=== PATIENT | female | born 1950 | race Caucasian/White ===

== ENCOUNTER 2017-06-04 20:00 | Inpatient (IN) | payer MEDICARE ==
[~2017-06-04] VITALS: Ht 162.6 cm; Wt 78.2 kg
[~2017-06-04 20:00] MED LIST: AMBIEN10 MG PO; CHANTIX1 MG PO; CIPRO500 MG PO; GABAPENTIN100 MG PO; LYRICA50 MG PO; MORPHINE SULFAT30 M2 PO; NORCO 10MG-325MG1 EA PO; PROMETHAZINE HC25 M1 PO; PROZAC20 MG PO; XANAX2 MG PO
[2017-06-04] MEDS ORDERED: ONDANSETRON HCL INJ 2 MG/ML VIAL IV STA (20:25)
[2017-06-04] MEDS ORDERED: PANTOPRAZOLE 40 MG 10ML VIAL IV STA (20:25)
[2017-06-04] MEDS ORDERED: SODIUM CHLORIDE 0.9% 1000ML 1,000 ML IV ONE (20:30)
[2017-06-04 21:06] LABS: BASOPHILS % 0.3 % (0.0-1.0); EOSINOPHILS % 0.3 % (0.0-6.0); HEMATOCRIT 41.5 % (34.2-44.1); HEMOGLOBIN 14.2 g/dL (12.0-16.0); LYMPHOCYTES # (AUTO) 1.8 (1.0-3.2); LYMPHOCYTES % 16.2 % (18.0-39.1); MEAN CORPUSCULAR HEMOGLOBIN 31.1 pg (28-32); MEAN CORPUSCULAR HGB CONC 34.2 g/dL (31-35); MONOCYTES % 8.5 % (4.4-11.3); NEUTROPHILS # (AUTO) 8.4 (2.1-6.9); NEUTROPHILS % 74.4 % (38.7-80.0); PLATELET COUNT 222 x10e3/uL (140-360); RED BLOOD COUNT 4.56 x10e6/uL (3.6-5.1); RED CELL DISTRIBUTION WIDTH 13.6 % (11.7-14.4)
[2017-06-04 21:18] LABS: ALANINE AMINOTRANSFERASE 109 IU/L (0-55); ALBUMIN 3.8 g/dL (3.5-5.0); ALBUMIN/GLOBULIN RATIO 1.1 (0.8-2.0); ALKALINE PHOSPHATASE 143 IU/L (40-150); AMYLASE 75 U/L (25-125); ANION GAP 15.6 mmol/L (8-16); BLOOD UREA NITROGEN 11 mg/dL (7-26); BUN/CREATININE RATIO 13 (6-25); CALCIUM 9.3 mg/dL (8.4-10.2); CARBON DIOXIDE 25 mmol/L (22-29); CHLORIDE 105 mmol/L (98-107); CREATINE KINASE 24 IU/L (29-168); CREATININE, SERUM 0.87 mg/dL (0.57-1.11); EST GLOMERULAR FILTRATION RATE > 60 ML/MIN (60-); GLUCOSE 108 mg/dL (74-118); LIPASE 25 U/L (8-78); POTASSIUM 3.6 mmol/L (3.5-5.1); SODIUM 142 mmol/L (136-145)
[2017-06-04 21:24] LABS: TROPONIN I 0.005 ng/mL (0-0.300)
[2017-06-04] MEDS ORDERED: DIATRIZOATE MEGL/DIATRIZOA SOD 30 ML BTL PO ONE (22:52)
[2017-06-04 23:35] LABS: BILIRUBIN,URINE NEGATIVE (NEGATIVE); CLARITY,URINE HAZY (CLEAR); COLOR,URINE YELLOW (YELLOW); KETONES,URINE NEGATIVE (NEGATIVE); LEUKOCYTE ESTERASE ,URINE TRACE (NEGATIVE); NITRITE,URINE NEGATIVE (NEGATIVE); PROTEIN,URINE DIPSTICK NEGATIVE (NEGATIVE); URINE UROBILINOGEN 0.2 mg/dL (0.2 - 1)
[2017-06-04 23:53] LABS: BACTERIA,URINE MANY /HPF; EPITHELIAL CELLS,URINE FEW /LPF; RBC,URINE 0-5 /HPF (0-5); TRANSITIONAL EPI CELLS,URINE FEW; WBC,URINE (MAN) 21-50 /HPF (0-5)
--- NOTE | 2017-06-05 00:05 | Diagnostic Imaging Report ---
EXAM: CT ABDOMEN AND PELVIS with IV CONTRAST DATE: 06/04/2017 8:25 PM Time stamp on Exam: 2326 hours INDICATION: Upper abdominal pain, radiates to left side COMPARISON: None TECHNIQUE: The abdomen and pelvis were scanned using a multidetector helical scanner. Coronal and sagittal reformations were obtained. Routine protocol performed. IV Contrast: 100 cc Isovue-370 Oral Contrast: Gastrografin CTDIvol has been reviewed. It is below the limits set by the Radiation Protocol Committee (RPC). FINDINGS: LOWER THORAX: No consolidations LIVER: Simple cysts in the liver. BILIARY: Diffuse gallbladder wall thickening and pericholecystic inflammation. SPLEEN: No masses PANCREAS: No masses ADRENALS: No nodules KIDNEYS: Symmetric perfusion. No enhancing masses. No hydronephrosis. GI TRACT: No distention, wall thickening or evidence of obstruction. VESSELS: Mild atherosclerotic changes without aneurysm. PERITONEUM/RETROPERITONEUM: No free air or fluid LYMPH NODES: No lymphadenopathy REPRODUCTIVE ORGANS: Unremarkable BLADDER: Unremarkable SOFT TISSUES: Unremarkable BONES: No suspicious bone lesions. IMPRESSION: Nonspecific gallbladder wall thickening and mild surrounding inflammation. Consider acute cholecystitis. Signed by: Dr. Deysi Wise M.D. on 06/05/2017 12:02 AM
[2017-06-05] MEDS ORDERED: ONDANSETRON HCL INJ 2 MG/ML VIAL IV STA (00:16)
[2017-06-05] MEDS ORDERED: MORPHINE SULFATE 2 MG/ML SYR IV STA (00:16)
[2017-06-05] MEDS: HYDRALAZINE HCL 20 MG/ML VIAL IV PRN (00:30)
[2017-06-05] MEDS ORDERED: CEFOXITIN 1GM/ DEXTROSE 50ML ML IV SCH (00:30)
[2017-06-05] MEDS: METRONIDAZOLE 500MG/NS 100ML IV SCH ×5 (00:43→23:42)
[2017-06-05] MEDS: SODIUM CHLORIDE 0.9% 1000ML 1,000 ML IV SCH ×2 (00:43→11:52)
[2017-06-05] MEDS: ALPRAZOLAM 1 MG TAB PO SCH ×3 (02:33→20:14)
[2017-06-05] MEDS: ONDANSETRON HCL INJ 2 MG/ML VIAL IV PRN (04:31)
[2017-06-05] MEDS: MORPHINE SULFATE 2 MG/ML SYR IV PRN ×4 (04:31→21:02)
[2017-06-05] MEDS: CEFOXITIN 1GM/ DEXTROSE 50ML ML IV SCH ×3 (05:35→22:48)
[2017-06-05] MEDS ORDERED: IOPAMIDOL 370 MG/ML 200 ML INFUS..BTL INJ ONE (06:55)
[2017-06-05] MEDS: PROMETHAZINE HCL 25 MG TAB PO SCH ×3 (09:00→20:14)
[2017-06-05] MEDS ORDERED: PREGABALIN 50 MG CAP PO SCH (09:00)
[2017-06-05] MEDS ORDERED: NON-FORMULARY MEDICATION (Alprazolam (Xanax) 2 MG) PO SCH (09:00)
[2017-06-05] MEDS: FLUOXETINE HCL 20 MG CAP PO SCH (09:00)
[2017-06-05 09:59] LABS: BASOPHILS % 0.3 % (0.0-1.0); EOSINOPHILS % 0.8 % (0.0-6.0); HEMATOCRIT 32.3 % (34.2-44.1); HEMOGLOBIN 10.3 g/dL (12.0-16.0); LYMPHOCYTES # (AUTO) 1.5 (1.0-3.2); LYMPHOCYTES % 39.8 % (18.0-39.1); MEAN CORPUSCULAR HEMOGLOBIN 30.5 pg (28-32); MEAN CORPUSCULAR HGB CONC 31.9 g/dL (31-35); MEAN CORPUSCULAR VOLUME 95.6 fL (81-99); MONOCYTES # (AUTO) 0.5 (0.2-0.8); MONOCYTES % 11.9 % (4.4-11.3); NEUTROPHILS # (AUTO) 1.8 (2.1-6.9); NEUTROPHILS % 46.9 % (38.7-80.0); PLATELET COUNT 177 x10e3/uL (140-360); RED BLOOD COUNT 3.38 x10e6/uL (3.6-5.1)
[2017-06-05 10:26] LABS: ALANINE AMINOTRANSFERASE 403 IU/L (0-55); ALBUMIN 2.8 g/dL (3.5-5.0); ALBUMIN/GLOBULIN RATIO 1.2 (0.8-2.0); ALKALINE PHOSPHATASE 187 IU/L (40-150); ANION GAP 10.5 mmol/L (8-16); BLOOD UREA NITROGEN 7 mg/dL (7-26); BUN/CREATININE RATIO 10 (6-25); CALCIUM 7.7 mg/dL (8.4-10.2); CARBON DIOXIDE 20 mmol/L (22-29); CHLORIDE 114 mmol/L (98-107); CREATININE, SERUM 0.72 mg/dL (0.57-1.11); EST GLOMERULAR FILTRATION RATE > 60 ML/MIN (60-); GLUCOSE 85 mg/dL (74-118); POTASSIUM 3.5 mmol/L (3.5-5.1); SODIUM 141 mmol/L (136-145)
--- NOTE | 2017-06-05 11:24 | Diagnostic Imaging Report ---
EXAM: RUQ ULTRASOUND Date: 06/05/2017 7:56 AM Indication: Comparison: None Technique: Sonographic evaluation of the right upper quadrant. Color doppler was utilized to supplement evaluation. FINDINGS: LIVER: No focal lesion is identified. The liver measures 18.8 cm in the right midclavicular line. Echotexture is normal. 1 cm simple cyst incidentally noted left hepatic lobe. BILIARY: Multiple shadowing gallstones are present, largest measuring 0.8 cm. Gallbladder wall is thickened, possibly due to nondistention. The common bile duct measures 0.3 cm. No sonographic Fletcher sign reported. PANCREAS: The pancreas is incompletely visualized due to overlying bowel gas, but no abnormality identified involving the visualized portions of the pancreas. RIGHT KIDNEY: Measures 8.9 cm in length. No hydronephrosis or solid mass lesion identified. PERITONEUM: No free fluid. VASCULATURE: Aorta: Visualized portions appear unremarkable. Interior vena cava: Visualized portions appear unremarkable. Portal Vein: Nondilated with hepatopedal flow. IMPRESSION: Multiple shadowing gallstones with no thickening of the common duct and no sonographic Fletcher sign reported. Gallbladder wall thickening may be due to nondistention. Clinical and laboratory correlation for cholecystitis recommended, however. Signed by: Dr. Morales Hudson MD on 06/05/2017 11:21 AM
[2017-06-05 11:39] LABS: THYROID STIMULATING HORMONE 3.553 uIU/mL (0.350-4.940)
[2017-06-05] MEDS: PANTOPRAZOLE SOD 40 MG TABEC PO SCH ×2 (11:55→16:59)
--- NOTE | 2017-06-05 13:39 | History and Physical ---
PRIMARY CARE PROVIDER: Dr. Juanito Villeda. CHIEF COMPLAINT: Retrosternal chest pain. HISTORY OF PRESENT ILLNESS: Ms. Forrest is a 66-year-old lady who has history of lupus, fibromyalgia, hypertension and peptic ulcer disease. She comes in complaining of retrosternal and epigastric pain. She is also complaining of generalized abdominal pain worse in the epigastric area and left lower quadrant. This has been going on since yesterday. REVIEW OF SYSTEMS: She denies fever, chills or weight loss. She denies sinus congestion or sore throat. She has chest pain as noted. No diaphoresis or palpitations. She denies shortness of breath, wheezing or cough. She has abdominal pain as noted in the epigastric area. She has acid reflux. She denies nausea, vomiting or melena. She denies diarrhea. She denies dysuria or flank pain. She denies rash or pruritus. She denies joint pain or swelling. She has generalized myalgia. She denies bleeding or bruising. She denies headache, vertigo or loss of consciousness. She denies depression, agitation, homicidal or suicidal ideation. PAST MEDICAL HISTORY: Significant for longstanding hypertension, previous stroke, breast cancer that is in remission, lupus, fibromyalgia and chronic pain syndrome. She has a history of distant hysterectomy. She has had a left mastectomy with reconstruction. MEDICATIONS: Her regular home medications include: 1. Gabapentin 100 mg 3 times a day. 2. Xanax 2 mg 3 times a day. 3. Hydrocodone 10 mg q.4 h. as needed. 4. Prozac 40 mg daily. 5. Morphine sulfate extended release, MS Contin 30 mg twice daily. 6. Promethazine 50 mg 3 times a day. 7. Ambien 10 mg at bedtime. ALLERGIES: SHE HAS STATED ALLERGY TO NONSTEROIDAL ANTI-INFLAMMATORIES. FAMILY HISTORY: Significant for hypertension. SOCIAL HISTORY: The patient is . [place] is her primary language. She is a current daily smoker. She does not drink or use illegal drugs. She is generally independently functioning. PHYSICAL EXAMINATION PSYCHIATRIC: She is alert and oriented times 3 with normal mood and affect. CONSTITUTIONAL: She has a normal body habitus. She is in no acute distress. VITAL SIGNS: Blood pressure 147/72. It was 178/108 initially. Heart rate 78. Respiratory rate 18. O2 sat 97%. Temperature 98.4. HEENT: Head is atraumatic. Eyes are anicteric with clear conjunctivae. Ears and nares are without erythema or discharge. Oropharynx is clear. NECK: Supple. No mass or thyromegaly. LYMPHATIC SYSTEM: She has no palpable cervical, axillary or inguinal adenopathy. CARDIOVASCULAR: Her heart has a regular rate and rhythm without murmur or extra heart sound. She has no carotid bruit. She has no peripheral edema. She has palpable dorsal pedal pulses. RESPIRATORY: Lungs are clear to auscultation and percussion. Somewhat diminished breath sounds throughout with no wheezing and normal respiratory effort. GASTROINTESTINAL: Her abdomen is soft. She has some mild to moderate tenderness in the right upper quadrant, epigastric area and left lower quadrant without rebound or guarding. She has no hepatosplenomegaly or masses palpable, and normal bowel sounds are present. CUTANEOUS: Her skin is warm and dry to touch with no rash or skin breakdown. MUSCULOSKELETAL: Her joints are in normal alignment without erythema or swelling. She has generalized muscle tenderness. She has no calf tenderness. NEUROLOGIC: Exam is nonfocal with intact cranial nerves and no motor or sensory deficits. DIAGNOSTIC STUDIES: CT scan of the abdomen shows gallbladder wall thickening and pericolic inflammation. Ultrasound shows multiple gallstones. Her UA has 20 to 50 white cells. Troponin 0.005. Her EKG shows normal sinus rhythm with nonspecific ST changes. Her chemistry profile showed normal electrolytes. CO2 25. Creatinine 0.87 and BUN 11 for a normal GFR. Calcium 9.3. Glucose 105. Amylase 75. Lipase 25. Her transaminases are markedly elevated with an AST of 291 and ALT 109. Bilirubin is normal at 0.5. Alk phos is elevated at 143. Repeat LFTs this morning shows an AST of 553 and ALT of 403. T-bili 0.5 and alkaline phos 187, all more elevated. Her CBC shows a white count of 11.24 with 74% neutrophils and 16% lymphocytes. Hemoglobin 14.2, hematocrit 41.5 and platelet count 222,000. Repeat this morning: White count is 3.77 with a normal differential. Hemoglobin 10.3, hematocrit 32.3, platelet count 177,000 overnight. Her chemistry profile this morning: Sodium is 141. The rest of the electrolytes are normal. CO2 is 20. Glucose 85. Creatinine 0.72 and BUN 7 for a normal GFR. Calcium is 7.7. IMPRESSION AND PLAN 1. Gallstones and acute cholecystitis. The patient is started on IV cefoxitin and Flagyl, and surgery has been consulted. 2. Generalized abdominal pain. History of peptic ulcer disease and microcytic anemia. GI has been consulted. The patient might benefit from upper endoscopy. 3. Elevated liver enzymes, questionable fatty liver versus related to the acute cholecystitis. The patient was probably transiently obstructed but will check a hepatitis panel as well as smooth muscle and mitochondrial antibody titers in view of her history of lupus. 4. Chronic pain/lupus/fibromyalgia. Will continue her regular chronic pain medications. 5. Hypertension. Will monitor and use IV hydralazine as needed. 6. For prophylaxis, the patient will have SCDs placed for DVT prophylaxis and Protonix for GI prophylaxis. TORRI MCCARTHY MD Job#: [id number]
[2017-06-05] MEDS: PREGABALIN 50 MG CAP PO SCH ×2 (14:30→20:14)
[2017-06-05] MEDS ORDERED: PROMETHAZINE HCL 25 MG TAB ONE (14:43)
[2017-06-05 15:34] VITALS: BP 174/83
[2017-06-05 15:42] VITALS: BP 174/83
[2017-06-05 15:50] VITALS: BP 174/83
[2017-06-05 16:13] VITALS: BP 174/83
--- NOTE | 2017-06-05 16:16 | Discharge Summary ---
NO DICTATION, LENGTH 4 SECONDS. TORRI MCCARTHY MD Job#: [id number]
[2017-06-05] MEDS: MORPHINE SULFATE 30 MG TAB ER PO SCH (16:59)
[2017-06-05] MEDS ORDERED: LIDOCAINE HCL 2% LOCAL INJ 5 ML SDV VIAL INJ ONE (17:41)
[2017-06-05] MEDS ORDERED: ONDANSETRON HCL INJ 2 MG/ML VIAL ONE (17:41)
[2017-06-05] MEDS ORDERED: DEXAMETHASONE SOD PHOS INJ 4 MG/ML VIAL ONE (17:41)
[2017-06-05] MEDS ORDERED: PROPOFOL IV EMULSION 10 MG/ML 20 ML VIAL ONE (17:41)
[2017-06-05] MEDS ORDERED: ROCURONIUM BROMIDE 10 MG/ML 5ML VIAL ONE (17:41)
[2017-06-05] MEDS ORDERED: DESFLURANE 240 ML BTL INH ONE (17:41)
[2017-06-05 20:08] VITALS: BP 133/67
[2017-06-05] MEDS: ZOLPIDEM TARTRATE 10 MG TAB PO SCH (21:00)
[2017-06-06] VITALS: BP 126/71
[2017-06-06] MEDS: SODIUM CHLORIDE 0.9% 1000ML 1,000 ML IV SCH ×3 (02:24→21:20)
[2017-06-06 04:00] VITALS: BP 163/84
[2017-06-06] MEDS: MORPHINE SULFATE 2 MG/ML SYR IV PRN (04:46)
[2017-06-06] MEDS: ONDANSETRON HCL INJ 2 MG/ML VIAL IV PRN (04:46)
[2017-06-06] MEDS: METRONIDAZOLE 500MG/NS 100ML IV SCH ×3 (05:16→18:09)
[2017-06-06] MEDS: CEFOXITIN 1GM/ DEXTROSE 50ML ML IV SCH (06:28)
[2017-06-06 06:56] LABS: BASOPHILS % 0.1 % (0.0-1.0); EOSINOPHILS # (AUTO) 0.2 (0.0-0.4); EOSINOPHILS % 2.2 % (0.0-6.0); HEMATOCRIT 36.2 % (34.2-44.1); HEMOGLOBIN 11.4 g/dL (12.0-16.0); LYMPHOCYTES # (AUTO) 1.8 (1.0-3.2); LYMPHOCYTES % 22.5 % (18.0-39.1); MEAN CORPUSCULAR HEMOGLOBIN 30.4 pg (28-32); MEAN CORPUSCULAR HGB CONC 31.5 g/dL (31-35); MEAN CORPUSCULAR VOLUME 96.5 fL (81-99); MONOCYTES # (AUTO) 0.7 (0.2-0.8); MONOCYTES % 8.7 % (4.4-11.3); NEUTROPHILS # (AUTO) 5.2 (2.1-6.9); NEUTROPHILS % 66.2 % (38.7-80.0); PLATELET COUNT 198 x10e3/uL (140-360); RED BLOOD COUNT 3.75 x10e6/uL (3.6-5.1); RED CELL DISTRIBUTION WIDTH 14.3 % (11.7-14.4)
[2017-06-06 07:41] LABS: ALANINE AMINOTRANSFERASE 264 IU/L (0-55); ALBUMIN 2.9 g/dL (3.5-5.0); ALKALINE PHOSPHATASE 188 IU/L (40-150); AMYLASE 64 U/L (25-125); ANION GAP 10.7 mmol/L (8-16); BLOOD UREA NITROGEN 6 mg/dL (7-26); BUN/CREATININE RATIO 7 (6-25); CALCIUM 8.4 mg/dL (8.4-10.2); CARBON DIOXIDE 23 mmol/L (22-29); CHLORIDE 107 mmol/L (98-107); CREATININE, SERUM 0.84 mg/dL (0.57-1.11); EST GLOMERULAR FILTRATION RATE > 60 ML/MIN (60-); GLUCOSE 88 mg/dL (74-118); LIPASE 13 U/L (8-78); POTASSIUM 3.7 mmol/L (3.5-5.1); SODIUM 137 mmol/L (136-145)
[2017-06-06 07:55] LABS: THYROID STIMULATING HORMONE 2.227 uIU/mL (0.350-4.940)
[2017-06-06 08:00] VITALS: BP 142/74
[2017-06-06] MEDS: PREGABALIN 50 MG CAP PO SCH ×3 (09:30→21:20)
[2017-06-06] MEDS: PANTOPRAZOLE SOD 40 MG TABEC PO SCH ×2 (09:30→16:56)
[2017-06-06] MEDS: MORPHINE SULFATE 30 MG TAB ER PO SCH ×2 (09:30→16:56)
[2017-06-06] MEDS: FLUOXETINE HCL 20 MG CAP PO SCH (09:30)
[2017-06-06] MEDS: ALPRAZOLAM 1 MG TAB PO SCH ×3 (09:30→21:20)
[2017-06-06] MEDS: PROMETHAZINE HCL 25 MG TAB PO SCH ×3 (09:30→21:20)
[2017-06-06 11:40] VITALS: BP 157/74
[2017-06-06] MEDS: HYDROCODONE/APAP 10MG-325MG TAB PO PRN (12:45)
[2017-06-06] MEDS ORDERED: MEROPENEM 1 GM VIAL ONE ×3 (14:47→21:26)
--- NOTE | 2017-06-06 15:13 | Diagnostic Imaging Report ---
EXAM: MRI MRCP WO DATE: 06/06/2017 9:50 PM INDICATION: Concern for common bile duct stone. COMPARISON: Ultrasound dated 06/05/2017, CT dated 06/04/2017 TECHNIQUE: MRCP protocol performed using1.5 Magalie. Sequences obtained include axial T2 FRFSE FS, coronal and axial T2 SSFSE, SSFSE coronal spins. FINDINGS: Multiple hepatic T2 hyperintense lesions are probably cysts. The largest in left hepatic lobe measures 1.4 cm and in right hepatic lobe measuring 1.9 cm (series 4, image 8). The gallbladder is normal in appearance without wall thickening or pericholecystic fluid. Small dependent gallstones are visualized. The common bile duct is dilated up to 12mm. There are no filling defects or strictures. No intrahepatic biliary dilation. Within the limitations of the exam, the spleen, pancreas and adrenal glands are unremarkable. Visualized bowel loops are unremarkable. No evidence of bowel obstruction. No upper abdominal free fluid or lymphadenopathy. The soft tissues and bones are unremarkable. IMPRESSION: Mild to moderately distended common bile duct without evidence of choledocholithiasis. Cholelithiasis without evidence of cholecystitis. Signed by: Dr. Raj De La Cruz MD on 06/06/2017 3:10 PM
[2017-06-06] MEDS: MEROPENEM 1GRAM 1 GM in WATER STERILE 10ML VIAL 20 ML IV SCH ×2 (15:15→21:20)
--- NOTE | 2017-06-06 15:33 | Consultation ---
DATE OF CONSULTATION: June 05, 2017 GI CONSULT NOTE REFERRING PHYSICIAN: Dr. Hernán Piña. REASON FOR CONSULT: Acute cholecystitis with the possibility of choledocholithiasis. HISTORY OF PRESENTING ILLNESS: A 66-year-old white female who got admitted with acute onset of midepigastric pain. Found to have abnormal liver tests. Ultrasound showed gallstones with some gallbladder wall thickening suggestive of acute cholecystitis. Liver tests were noted abnormal. GI is being consulted for evaluation of acute cholecystitis with possibility of acute choledocholithiasis. Surgery has also been consulted. REVIEW OF SYSTEMS: A 12-point system reviewed, symptomatologies limited to GI system. PAST MEDICAL HISTORY: Hypertension; CVA; lupus; fibromyalgia; chronic pain syndrome; history of breast cancer, currently in remission. PAST SURGICAL HISTORY: Hysterectomy, lumpectomy, mastectomy with reconstruction. FAMILY HISTORY: Noncontributory. SOCIAL HISTORY: Daily smoker. Seldom drinks alcohol. Never used any illicit drugs. HOME MEDICATIONS: Gabapentin, Xanax, hydrocodone, Prozac, promethazine, and Ambien. ALLERGIES DOCUMENTED TO NONSTEROIDAL ANTI-INFLAMMATORY MEDICATIONS. PHYSICAL EXAMINATION VITAL SIGNS: Temperature 97, pulse 84, respirations 18, blood pressure 133/67, and oxygen saturation 97% on room air. GENERAL: Not in any apparent distress at this time. Drowsy, lethargic. HEENT: Oral mucosa is moist. Anicteric sclerae. CVS: S1, S2 regular. LUNGS: Bilaterally grossly clear. ABDOMEN: Soft. Palpable right upper quadrant tenderness. Fletcher sign equivocal. No rebound, rigidity, or guarding. Positive bowel sounds. EXTREMITIES: Warm. No leg edema. LABS: WBC was 11.24, repeat came down to 3.77. Hemoglobin 10.3, hematocrit 32.3, MCV 95.6, and platelet count 177,000. Sodium 141, potassium 3.5, chloride 114, bicarb 20, BUN 7, and creatinine 0.72. Liver tests showed AST has gone up to 553 from 291, ALT 403 from 109, alkaline phosphatase 187 from 143, total bilirubin 0.5 from 0.5. Viral hepatitis serology pending. Urinalysis showed WBC of 21 to 50 per high-powered field. Leukocyte esterase is trace. Nitrite negative. Right upper quadrant sonogram showed multiple shadowing gallstones with thickening of the common bile duct and no sonographic Fletcher sign. Gallbladder wall thickening may be due to nondistention. Clinical and laboratory correlation for cholecystitis is recommended. CT of the abdomen and pelvis with IV contrast showed nonspecific gallbladder wall thickening and mild surrounding inflammation. Consider acute cholecystitis, common bile duct not dilated. IMPRESSION: Acute cholecystitis with possibility of choledocholithiasis given elevated liver tests. PLAN: Continue IV fluid, IV antibiotic. Patient looks like he also has underlying urinary tract infection. Therefore antibiotic should cover that too. MRCP to check for choledocholithiasis. If MRCP is positive for common bile duct stone, obviously patient will undergo ERCP prior to cholecystectomy. I thank Dr. Piña for allowing me to participate in the care of this patient. Job#: [id number]
[2017-06-06 16:00] VITALS: BP 152/91
[2017-06-06 17:05] LABS: INR 0.92; PROTHROMBIN TIME 12.8 seconds (11.9-14.5)
[2017-06-06 17:06] LABS: PARTIAL THROMBOPLASTIN TIME 35.9 seconds (23.8-35.5)
[2017-06-06 20:00] VITALS: BP 139/98
[2017-06-06] MEDS: ZOLPIDEM TARTRATE 10 MG TAB PO SCH (21:00)
--- NOTE | 2017-06-06 22:02 | Progress Note ---
DATE: June 06, 2017 SUBJECTIVE: Patient reports intermittently persistent right upper quadrant pain. No nausea or vomiting. She has been kept n.p.o. She is on IV fluids, IV antibiotics. REVIEW OF SYSTEMS GENERAL: No fever or chills. CVS: No chest pain or palpitations. RESPIRATORY: No cough or expectoration. MEDICATIONS: Reviewed as per JUL. She is currently getting intravenous meropenem as well as metronidazole along with other medications. OBJECTIVE VITAL SIGNS: Temperature 96.4, pulse 82, respirations 18, blood pressure 152/91 to 157/74, and oxygen saturation 94% on room air. GENERAL: Not in any acute distress, lethargic and drowsy. HEENT: Moist mucous membrane. Anicteric sclerae. CVS: S1 and S2 regular. LUNGS: Bilaterally grossly clear. ABDOMEN: Soft. Palpable right upper quadrant tenderness. No mass or hernia. Positive bowel sounds. EXTREMITIES: Warm. No leg edema. LABS: WBC has come down to 7.79 from 11.24, hemoglobin 11.4, hematocrit 36.2, MCV 96.5, and platelet count 198,000. PT 12.8, INR 0.92, PTT 35.9. Sodium 137, potassium 3.7, chloride 107, bicarb 23, BUN 6, and creatinine 0.84. Liver tests showed a total bilirubin has come down to 0.4, AST 169 from 553, ALT 264 from 403, and alkaline phosphatase 188 from 187. Amylase and lipase normal. Viral hepatitis serology is pending. MRCP showed 1. Mild to moderately distended common bile duct without evidence of choledocholithiasis. 2. Cholelithiasis without evidence of cholecystitis. IMPRESSION: Acute cholecystitis, no choledocholithiasis, magnetic resonance cholangiopancreatography is negative. Liver enzymes trending down. Patient most likely has passed the stone. PLAN: Discussed with Dr. Sandoval over the phone, cholecystectomy on Tuesday. In the interim, continue present medical management with IV fluid, n.p.o. as well as antibiotics. Job#: [id number]
[2017-06-07] VITALS: BP 147/90
[2017-06-07] MEDS: METRONIDAZOLE 500MG/NS 100ML IV SCH ×4 (00:39→16:46)
[2017-06-07 04:00] VITALS: BP 189/97
[2017-06-07] MEDS ORDERED: MEROPENEM 1 GM VIAL ONE ×4 (05:25→21:22)
[2017-06-07] MEDS: MEROPENEM 1GRAM 1 GM in WATER STERILE 10ML VIAL 20 ML IV SCH ×3 (05:30→21:38)
[2017-06-07 06:45] LABS: BASOPHILS % 0.4 % (0.0-1.0); EOSINOPHILS # (AUTO) 0.2 (0.0-0.4); EOSINOPHILS % 3.2 % (0.0-6.0); HEMATOCRIT 34.7 % (34.2-44.1); HEMOGLOBIN 11.2 g/dL (12.0-16.0); LYMPHOCYTES # (AUTO) 1.9 (1.0-3.2); LYMPHOCYTES % 41.1 % (18.0-39.1); MEAN CORPUSCULAR HEMOGLOBIN 30.9 pg (28-32); MEAN CORPUSCULAR HGB CONC 32.3 g/dL (31-35); MEAN CORPUSCULAR VOLUME 95.9 fL (81-99); MONOCYTES # (AUTO) 0.4 (0.2-0.8); MONOCYTES % 7.8 % (4.4-11.3); NEUTROPHILS # (AUTO) 2.2 (2.1-6.9); NEUTROPHILS % 47.3 % (38.7-80.0); PLATELET COUNT 187 x10e3/uL (140-360); RED BLOOD COUNT 3.62 x10e6/uL (3.6-5.1); RED CELL DISTRIBUTION WIDTH 13.9 % (11.7-14.4)
[2017-06-07 07:07] LABS: ALANINE AMINOTRANSFERASE 166 IU/L (0-55); ALBUMIN 2.8 g/dL (3.5-5.0); ALBUMIN/GLOBULIN RATIO 1.1 (0.8-2.0); ALKALINE PHOSPHATASE 175 IU/L (40-150); ANION GAP 11.4 mmol/L (8-16); BLOOD UREA NITROGEN 6 mg/dL (7-26); BUN/CREATININE RATIO 9 (6-25); CALCIUM 8.7 mg/dL (8.4-10.2); CARBON DIOXIDE 25 mmol/L (22-29); CHLORIDE 110 mmol/L (98-107); EST GLOMERULAR FILTRATION RATE > 60 ML/MIN (60-); GLUCOSE 82 mg/dL (74-118); POTASSIUM 3.4 mmol/L (3.5-5.1); SODIUM 143 mmol/L (136-145)
[2017-06-07] MEDS: PANTOPRAZOLE SOD 40 MG TABEC PO SCH ×2 (07:30→16:43)
[2017-06-07 08:00] VITALS: BP 140/86
[2017-06-07] MEDS ORDERED: BUPIVACAINE 0.25% 30ML SDV INJ ONE (08:22)
[2017-06-07] MEDS: PROMETHAZINE HCL 25 MG TAB PO SCH ×3 (09:00→21:38)
[2017-06-07] MEDS: ALPRAZOLAM 1 MG TAB PO SCH ×3 (09:00→21:38)
[2017-06-07] MEDS: FLUOXETINE HCL 20 MG CAP PO SCH (09:00)
[2017-06-07] MEDS: PREGABALIN 50 MG CAP PO SCH ×3 (09:00→21:38)
[2017-06-07] MEDS: MORPHINE SULFATE 30 MG TAB ER PO SCH ×2 (09:00→16:43)
[2017-06-07] MEDS: SODIUM CHLORIDE 0.9% 1000ML 1,000 ML IV SCH (12:04)
[2017-06-07] MEDS ORDERED: IOPAMIDOL 610MG/1ML 300 MG/ML VIAL IV ONE (12:38)
[2017-06-07] MEDS ORDERED: ONDANSETRON HCL INJ 2 MG/ML VIAL ONE (14:12)
--- NOTE | 2017-06-07 14:51 | Operative Report ---
DATE OF PROCEDURE: June 07, 2017 PREOPERATIVE DIAGNOSIS: 1. Cholelithiasis. 2. Abdominal pain. 3. Abnormal liver function test. 4. Chronic pain syndrome on multiple narcotics by pain medicine management. 5. Multiple comorbid conditions. POSTOPERATIVE DIAGNOSIS: 1. Cholelithiasis. 2. Chronic cholecystitis. 3. Fatty liver infiltration. 4. No evidence of choledocholithiasis by intraoperative cholangiogram. 5. Chronic pain syndrome. 6. Multiple medical comorbidities. PROCEDURE PERFORMED: Laparoscopic cholecystectomy with intraoperative cholangiogram and liver biopsy. HYDRATOR OPERATOR: None. ANESTHESIA: General endotracheal. ESTIMATED BLOOD LOSS: Minimal. DRAINS: None. COMPLICATIONS: None. INDICATIONS AND FINDINGS: The patient is a 66-year-old female admitted with a multitude of complaints. Workup revealed cholelithiasis. She had abnormal liver chemistries, and a preoperative cholangio MRCP was negative. The patient was evaluated preoperatively by Medicine and GI, and after the preoperative evaluation was completed, she underwent laparoscopic cholecystectomy. INTRAOPERATIVE FINDINGS: The patient had cholelithiasis, small stones. The cystic duct appeared to be dilated. Intraoperative cholangiogram revealed no filling defects. There was a somewhat dilated common bile duct. The patient had fatty liver infiltration, and there were adhesions of the omentum to the gallbladder consistent with chronic cholecystitis. There was no evidence of acute cholecystitis. DESCRIPTION OF PROCEDURE: With the patient lying on the operative table in the supine position after administration of general anesthesia, she was prepped and draped for laparoscopic cholecystectomy. Because of previous abdominoplasty and hysterectomy, the procedure was begun by establishing a pneumoperitoneum in the right upper quadrant midclavicular line. A pneumoperitoneum was insufflated to 15 mm of pressure and then the 5 mm trocar placed in that location. Under direct vision with a camera, we placed an umbilical 10-11 trocar, obtaining 360-degree full visualization of the trocar site entrance area. We went ahead and then rotated the patient to the left and with the head up and placed a 10 mm subxiphoid port, and finally a right anterior axillary line trocar was placed. The gallbladder was then retracted cephalad using grasping forceps through the two 5 mm trocars, and adhesions of the omentum to the gallbladder were sharply lysed. After we did that, we went ahead and then began the dissection high in the neck of the gallbladder, identifying the cystic duct. We identified the hepatic artery that was behind the cystic duct, as well as 2 branches of the hepatic artery that were freed in the gallbladder. We identified the cystic duct/common bile duct junction circumferentially. Only at that point we went ahead and clipped the cystic duct proximally and transected the cystic artery between titanium clips. At this point, we performed an intraoperative cholangiogram using 50% dye by placing a biliary Jose Alejandro catheter through the right anterior axillary line; and using 50% diluted dye, we made an incision in the cystic duct with the microscissors, then performed intraoperative fluoroscopy with the findings noted above. There was free flow of dye into the duodenum. The distal common bile duct tapered nicely into the duodenum, and we were able to visualize the bifurcation and we did not see any stones. This corroborated the findings of the cholangio MRCP. At this point, we then transected the cystic duct. Then we placed an Endoloop proximal to the common bile duct to obtain a secure closure of the cystic duct stump to prevent any blowout. We then further reinforced that with 2 martin in the cystic duct. At this point, we then removed the gallbladder easily from the liver bed using electrocautery dissection. We removed the gallbladder from the umbilical port site. We went ahead and then performed a wedge biopsy of the right lobe of the liver using the PACman forceps and sent that for permanent section. This was done because the patient had significant hepatic liver infiltration with abnormal liver function tests. We went ahead and then cauterized the biopsy site, obtaining hemostasis. Then we irrigated the operative field, suctioned out all the fluid; and then after ascertaining that there was no bile leak, no bleeding, no apparent bowel injury, we placed a Surgicel on the biopsy site, released the pneumoperitoneum under direct vision with the camera, and there was no bleeding coming from the trocar sites. At this point then, we released the pneumoperitoneum, closed the wounds using 0 Vicryl for the umbilical fascia, 3-0 Vicryl for the subcutaneous tissue in that location as well as the subxiphoid port. The skin of all the ports was closed with martin. Marcaine 0.25% with epinephrine was given as a local block. The patient tolerated the procedure well, was taken to the recovery room in stable condition. Job#: [id number]
--- NOTE | 2017-06-07 15:53 | Diagnostic Imaging Report ---
Exam: Cholangiogram History: Cholecystitis, suspect CBD stone Comparison: MRI/MRCP 06/06/2019 819 Findings: Multiple fluoroscopic images of the right upper quadrant during cholangiogram are submitted for interpretation. No filling defects are identified in the common bile duct. There is abrupt narrowing of the most distal portion of the CBD at the ampulla. Contrast is noted in the duodenum. Impression: 1. No filling defects to suggest stones in the CBD. 2. Abrupt narrowing of the most distal portion of the CBD at the ampulla. This was not clearly seen in the prior MRCP, and there is no evidence of pancreatic ductal dilation on the MRCP. While this may reflect contraction of the ampullary portion, a stricture is also a consideration. Signed by: Dr. Elver Segura M.D. on 06/07/2017 3:50 PM
[2017-06-07 16:00] VITALS: BP 192/92
[2017-06-07] MEDS: HYDROCODONE/APAP 10MG-325MG TAB PO PRN ×2 (18:06→22:52)
[2017-06-07] MEDS: ONDANSETRON HCL INJ 2 MG/ML VIAL IV PRN (19:21)
[2017-06-07] MEDS: MORPHINE SULFATE 2 MG/ML SYR IV PRN (19:21)
[2017-06-07] MEDS ORDERED: FENTANYL CITRATE/PF 100MCG/2 ML INJ ONE (19:31)
[2017-06-07] MEDS ORDERED: MIDAZOLAM HCL 2 MG/2 ML VIAL ONE (19:31)
[2017-06-07 20:00] VITALS: BP 180/91
[2017-06-07] MEDS: ZOLPIDEM TARTRATE 10 MG TAB PO SCH (21:00)
[2017-06-07] MEDS: HYDRALAZINE HCL 20 MG/ML VIAL IV PRN (21:39)
--- NOTE | 2017-06-07 22:06 | Progress Note ---
DATE: June 07, 2017 DATE OF : 1950 GI PROGRESS REPORT SUBJECTIVE: Patient reports abdominal pain from surgery. She is, otherwise, feeling better. She has undergone laparoscopic cholecystectomy today. REVIEW OF SYSTEMS GENERAL: No fever or chills. RESPIRATORY: No cough or expectoration. CVS: No chest pain, palpitations. MEDICATIONS: Reviewed as per JUL. PHYSICAL EXAMINATION VITAL SIGNS: Temperature 97, pulse 75, respirations 17, blood pressure ranging from 140/86 to 192/92, pulse showed 96% on room air. GENERAL: Not in any acute distress. HEENT: Moist mucous membrane. Anicteric sclerae. CVS: S1/S2 regular. LUNGS: Bilaterally grossly clear. ABDOMEN: Incisional right upper quadrant tenderness. Minimal bowel sounds. No rebound, rigidity or any guarding. EXTREMITIES: Warm. No leg edema. LAB: WBC 4.62, hemoglobin has come down to 11.2 from 11.4, hematocrit 37.4, MCV 95.9, and platelet count 187,000. Sodium 143, potassium 3.4, chloride 110, bicarb 25, BUN 6, creatinine 0.70. Liver tests showed AST has come down 57 from 169, ALT 166 from 264, alkaline phosphatase 175 from 188, and total bilirubin 0.3 from 0.4. Intraoperative cholangiogram showed 1. No filling defect to suggest stone in the CBD. 2. Abrupt narrowing of the most distal portion of the CBD at the ampulla. This was not clearly seen in the prior MRCP and there is no evidence of pancreatic ductal dilatation on MRCP. While this may reflect contraction of the ampullary portion, stricture is also a consideration. IMPRESSIONS 1. Status post laparoscopic cholecystectomy for acute cholecystitis. 2. Abnormal liver tests, which are significantly improved. This was likely due to patient has passed a stone. 3. Intraoperative cholangiogram is showing some abrupt narrowing of the distal common bile duct. I will not hold any significance to it especially given normal liver tests. PLAN: Postoperative care as per surgery. Continue antibiotics. Patient has already been allowed clearance. Follow up with me in GI office within 2 weeks post discharge. Job#: [id number]
[2017-06-08] VITALS (8 sets, daily range): BP systolic 87–143; BP diastolic 52–78
[2017-06-08] MEDS: METRONIDAZOLE 500MG/NS 100ML IV SCH ×4 (00:16→18:14)
[2017-06-08] MEDS: MORPHINE SULFATE 2 MG/ML SYR IV PRN ×2 (00:40→05:35)
[2017-06-08] MEDS: ONDANSETRON HCL INJ 2 MG/ML VIAL IV PRN ×2 (00:40→05:38)
[2017-06-08] MEDS: SODIUM CHLORIDE 0.9% 1000ML 1,000 ML IV SCH ×2 (01:35→15:50)
[2017-06-08] MEDS: ZOLPIDEM TARTRATE 10 MG TAB PO SCH ×2 (01:35→21:00)
[2017-06-08] MEDS ORDERED: MEROPENEM 1 GM VIAL ONE ×3 (05:12→21:30)
[2017-06-08] MEDS: MEROPENEM 1GRAM 1 GM in WATER STERILE 10ML VIAL 20 ML IV SCH ×3 (05:24→21:40)
[2017-06-08] MEDS: HYDROCODONE/APAP 10MG-325MG TAB PO PRN ×3 (07:08→21:57)
[2017-06-08 07:29] LABS: BASOPHILS % 0.1 % (0.0-1.0); HEMATOCRIT 35.5 % (34.2-44.1); HEMOGLOBIN 11.9 g/dL (12.0-16.0); LYMPHOCYTES # (AUTO) 2.2 (1.0-3.2); LYMPHOCYTES % 21.4 % (18.0-39.1); MEAN CORPUSCULAR HEMOGLOBIN 31.2 pg (28-32); MEAN CORPUSCULAR HGB CONC 33.5 g/dL (31-35); MEAN CORPUSCULAR VOLUME 93.2 fL (81-99); MONOCYTES # (AUTO) 0.8 (0.2-0.8); MONOCYTES % 7.6 % (4.4-11.3); NEUTROPHILS # (AUTO) 7.3 (2.1-6.9); NEUTROPHILS % 70.6 % (38.7-80.0); PLATELET COUNT 217 x10e3/uL (140-360); RED BLOOD COUNT 3.81 x10e6/uL (3.6-5.1); RED CELL DISTRIBUTION WIDTH 13.7 % (11.7-14.4)
[2017-06-08 07:44] LABS: ANION GAP 11.4 mmol/L (8-16); BLOOD UREA NITROGEN 7 mg/dL (7-26); BUN/CREATININE RATIO 9 (6-25); CALCIUM 9.2 mg/dL (8.4-10.2); CARBON DIOXIDE 27 mmol/L (22-29); CHLORIDE 105 mmol/L (98-107); CREATININE, SERUM 0.79 mg/dL (0.57-1.11); EST GLOMERULAR FILTRATION RATE > 60 ML/MIN (60-); GLUCOSE 110 mg/dL (74-118); MAGNESIUM 1.8 MG/DL (1.3-2.1); POTASSIUM 3.4 mmol/L (3.5-5.1); SODIUM 140 mmol/L (136-145)
[2017-06-08 07:48] LABS: ALANINE AMINOTRANSFERASE 127 IU/L (0-55); ALBUMIN/GLOBULIN RATIO 1.1 (0.8-2.0); ALKALINE PHOSPHATASE 163 IU/L (40-150); ANION GAP 10.4 mmol/L (8-16); BLOOD UREA NITROGEN 7 mg/dL (7-26); BUN/CREATININE RATIO 9 (6-25); CALCIUM 9.3 mg/dL (8.4-10.2); CARBON DIOXIDE 27 mmol/L (22-29); CHLORIDE 105 mmol/L (98-107); CREATININE, SERUM 0.81 mg/dL (0.57-1.11); EST GLOMERULAR FILTRATION RATE > 60 ML/MIN (60-); GLUCOSE 112 mg/dL (74-118); POTASSIUM 3.4 mmol/L (3.5-5.1); SODIUM 139 mmol/L (136-145)
[2017-06-08] MEDS: PROMETHAZINE HCL 25 MG TAB PO SCH ×3 (09:28→21:00)
[2017-06-08] MEDS: ALPRAZOLAM 1 MG TAB PO SCH ×3 (09:28→21:36)
[2017-06-08] MEDS: FLUOXETINE HCL 20 MG CAP PO SCH (09:28)
[2017-06-08] MEDS: PANTOPRAZOLE SOD 40 MG TABEC PO SCH ×2 (09:28→18:14)
[2017-06-08] MEDS: MORPHINE SULFATE 30 MG TAB ER PO SCH ×2 (09:28→18:14)
[2017-06-08] MEDS: PREGABALIN 50 MG CAP PO SCH ×3 (09:28→21:36)
[2017-06-08] MEDS ORDERED: MORPHINE SULFATE 5 MG/ML VIAL IV PRN (10:30)
--- NOTE | 2017-06-08 12:56 | Progress Note ---
DATE: June 08, 2017 GI PROGRESS REPORT SUBJECTIVE: The patient is tolerating a full liquid diet. She passed flatus last night. She has not had any bowel movement. She is complaining of some incisional pain. REVIEW OF SYSTEMS GENERAL: No fever or chills. RESPIRATORY: No cough or expectoration. CVS: No chest pain or palpitations. MEDICATIONS: Reviewed JUL. PHYSICAL EXAMINATION VITAL SIGNS: Temperature 98.4, pulse 86, respirations 18, blood pressure 112/71, oxygen saturation 98% on room air. GENERAL: Not in any acute distress. HEENT: Moist mucous membranes. Anicteric sclerae. CVS: S1 and S2 regular. LUNGS: Bilaterally grossly clear. ABDOMEN: Soft. Nondistended. Palpable upper quadrant incisional tenderness. No rebound, rigidity or guarding. Positive bowel sounds. EXTREMITIES: Warm. No leg edema. LABS: WBC has gone up to 10.31 from 4.62. Hemoglobin 11.9, hematocrit 35.5, platelet count 217. Sodium 139, potassium 3.4, chloride 105, bicarb 27, BUN 7, creatinine 0.81. Liver tests are further down. AST has come down to 44 from 57, ALT 127 from 166, alkaline phosphatase 163 from 175, and total bilirubin 0.3 from 0.3. Gallbladder surgical pathology is pending. IMPRESSION 1. Status post laparoscopic cholecystectomy for acute cholecystitis, postoperative day #1. 2. Abnormal liver tests, significantly improved, continuously trending down. This is likely due to patient having passed a stone. 3. Intraoperative cholangiogram with some abrupt narrowing at the distal common bile duct. This holds no significance given improving liver tests. PLAN: Postoperative care as per surgery. I was told that surgery has cleared for the discharge. The patient can be discharged from a GI standpoint as well. Will follow her in my office in 2 weeks. Need to monitor her liver tests as an outpatient. Job#: [id number] MARIANNE
[2017-06-09] VITALS: BP 105/68
[2017-06-09] MEDS: METRONIDAZOLE 500MG/NS 100ML IV SCH ×3 (00:12→11:34)
[2017-06-09 04:30] VITALS: BP 105/75
[2017-06-09] MEDS ORDERED: MEROPENEM 1 GM VIAL ONE ×3 (05:15→15:23)
[2017-06-09] MEDS: MEROPENEM 1GRAM 1 GM in WATER STERILE 10ML VIAL 20 ML IV SCH ×2 (05:22→15:33)
[2017-06-09] MEDS: HYDROCODONE/APAP 10MG-325MG TAB PO PRN ×2 (05:23→11:34)
[2017-06-09 06:07] LABS: BASOPHILS % 0.3 % (0.0-1.0); EOSINOPHILS # (AUTO) 0.1 (0.0-0.4); EOSINOPHILS % 0.7 % (0.0-6.0); HEMATOCRIT 34.9 % (34.2-44.1); HEMOGLOBIN 11.1 g/dL (12.0-16.0); LYMPHOCYTES % 26.8 % (18.0-39.1); MEAN CORPUSCULAR HEMOGLOBIN 30.8 pg (28-32); MEAN CORPUSCULAR HGB CONC 31.8 g/dL (31-35); MEAN CORPUSCULAR VOLUME 96.9 fL (81-99); MONOCYTES # (AUTO) 0.8 (0.2-0.8); MONOCYTES % 7.3 % (4.4-11.3); NEUTROPHILS # (AUTO) 7.3 (2.1-6.9); NEUTROPHILS % 64.6 % (38.7-80.0); PLATELET COUNT 195 x10e3/uL (140-360); RED CELL DISTRIBUTION WIDTH 14.2 % (11.7-14.4)
[2017-06-09 06:29] LABS: ANION GAP 11.3 mmol/L (8-16); CALCIUM 8.6 mg/dL (8.4-10.2); CREATININE, SERUM 0.95 mg/dL (0.57-1.11); MAGNESIUM 1.6 MG/DL (1.3-2.1); PHOSPHORUS 2.2 MG/DL (2.3-4.7); POTASSIUM 3.3 mmol/L (3.5-5.1)
[2017-06-09 07:15] VITALS: BP 138/73
[2017-06-09] MEDS: PANTOPRAZOLE SOD 40 MG TABEC PO SCH ×2 (07:30→17:23)
[2017-06-09 08:00] VITALS: BP 138/73
[2017-06-09] MEDS: ALPRAZOLAM 1 MG TAB PO SCH ×2 (09:00→12:16)
[2017-06-09] MEDS: PREGABALIN 50 MG CAP PO SCH ×2 (09:00→15:00)
[2017-06-09] MEDS: PROMETHAZINE HCL 25 MG TAB PO SCH ×2 (09:00→15:00)
[2017-06-09] MEDS: SODIUM CHLORIDE 0.9% 1000ML 1,000 ML IV SCH ×2 (09:00→17:24)
[2017-06-09] MEDS: MORPHINE SULFATE 30 MG TAB ER PO SCH ×2 (09:00→17:24)
[2017-06-09] MEDS: FLUOXETINE HCL 20 MG CAP PO SCH (09:00)
[2017-06-09] MEDS ORDERED: FENTANYL 25 MCG/HR PATCH TOP SCH (10:00)
[2017-06-09] MEDS ORDERED: METHYLNALTREXONE BROMIDE 12 MG/0.6 ML VIAL SQ SCH (10:30)
--- NOTE | 2017-06-09 11:04 | Progress Note ---
DATE: June 09, 2017 SUBJECTIVE: Patient has not had any bowel movement even prior to surgery. She is on opioid and analgesia. Tolerating liquid diet. REVIEW OF SYSTEMS GENERAL: No fever or chills. CV: No chest pain or palpitations. RESPIRATORY: No cough or expectoration. MEDICATIONS: As per MAR. She is on IV metronidazole, IV meropenem along with morphine intravenous 4 mg every 4 hours, morphine oral tablets. PHYSICAL EXAMINATION VITAL SIGNS: Temperature 97.5, pulse 93, respirations 18, blood pressure 138/73, and oxygen saturation 95% on room air. GENERAL: Not in any acute distress. HEENT: Moist mucous membranes. Anicteric sclerae. CV: S1 and S2 regular. LUNGS: Bilaterally grossly clear. ABDOMEN: Soft. Incisional tenderness. No rebound, rigidity or guarding. Positive bowel sounds. No mass or hernia. EXTREMITIES: Warm. No leg edema. LABS: White count has gone up to 11.21 from 10.31. Hemoglobin 11.1, hematocrit 34.9, MCV 96.9, and platelet count 195,000. Sodium 142, potassium 3.3, chloride 109, bicarb 25, BUN 10, creatinine 0.95. No liver tests drawn today. Viral hepatitis serology is still pending. IMPRESSION 1. Status post laparoscopic cholecystectomy, postoperative day #2. 2. Opioid-induced constipation. PLAN: Daily bowel regimen. Will give Relistor to reverse the opioid effect on the gut. Will continue full liquid until the patient has a bowel movement. Pain management is also following the patient. Job#: [id number] MALINDA
[2017-06-09 12:00] VITALS: BP 132/77
[2017-06-09] MEDS ORDERED: BACTRIM DS TAB1 EACH PO (13:58)
[2017-06-09] MEDS ORDERED: TYLENOL WITH C1 EACH PO (13:58)
[2017-06-09] MEDS ORDERED: POTASSIUM CHLORIDE 20 MEQ TAB CR PO NR (14:00)
[2017-06-09 16:00] VITALS: BP 137/88
[2017-06-09] MEDS ORDERED: DOCUSATE SODIUM 100 MG CAP PO SCH (17:00)
[2017-06-09] MEDS ORDERED: METRONIDAZOLE 500MG/NS 100ML 100 ML IV SCH (18:00)
--- NOTE | 2017-06-09 22:09 | Discharge Summary ---
ADMISSION DIAGNOSES 1. Gallstones. 2. Acute cholecystitis. 3. Generalized abdominal pain. 4. Elevated liver enzymes. 5. Chronic pain. 6. Lupus. 7. Fibromyalgia. 8. Hypertension. DISCHARGE DIAGNOSES 1. Gallstones. 2. Acute cholecystitis. 3. Generalized abdominal pain. 4. Elevated liver enzymes. 5. Chronic pain. 6. Lupus. 7. Fibromyalgia. 8. Hypertension. 9. Cholecystectomy. HISTORY: Patient has history of hypertension, stroke, breast cancer that is in remission, lupus, fibromyalgia, chronic pain syndrome. Surgical history of hysterectomy and a left mastectomy with resection. HOSPITAL COURSE: A 66-year-old female, who presented with retrosternal and epigastric pain, with abdominal pain was worse in the epigastric area and left lower quadrant. The pain started the day before admitting to the hospital. Patient was started on IV antibiotics and surgery was consulted. For the abdominal pain, GI was consulted. Patient was continued on chronic pain medications for fibromyalgia, lupus, and her chronic pain. Per GI, patient had an MRCP. MRCP showed a mild to moderately distended common bile duct without evidence of choledocholithiasis. Cholelithiasis without evidence of cholecystitis. On admission, the patient also had CT of the abdomen, which showed nonspecific gallbladder wall thickening and mild surrounding inflammation. Ultrasound of the gallbladder showed multiple shattering gallstones with no thickening of the common duct and no sonographic Fletcher sign reported. After the MRCP was done, patient had a cholangiogram, which showed no filling defects to suggest stones in the common bile duct, abrupt narrowing of the most distal portion of the common bile duct at the ampulla. This was not clearly seen in the prior MRCP and there is no evidence of pancreatic ductal dilation on the MRCP. While this may reflect contraction at the ampullary portion, a stricture is also a consideration. Patient then had a lap lisandro on June 07, with intraoperative cholangiogram and liver biopsy. Patient was also found to have ESBL of the urine and started on proper antibiotics. Her hepatitis panel was negative. Antimitochondrial antibody was negative. Vital signs stable. Lab stable on day of admission. Patient tolerating diet, passing gas, and having bowel movements. Patient sent home on antibiotics for UTI and will follow up with surgery in about a week to remove the martin. Patient will follow up with PCP in a week as well and pain management for chronic pain meds. Dictated by: Katlyn Marie, AIDA TORRI MCCARTHY MD Job#: [id number] CQ
[2017-06-10] MEDS ORDERED: POLYETHYLENE GLYCOL 3350 17 GM PACK PO SCH (09:00)
== END 2017-06-09 18:51 | disposition home or self-care (01) | DRG 418 ==
LOC: ER 20:00 → EDBEDREQ 06-05 00:31 → ERHOLD 06-05 02:01 → MED/SURG 06-05 14:52 → MED/SURG2 06-06 12:46
PROVIDERS: ADMIT Internal Medicine; ATTEND Internal Medicine
PROC: 0FB04ZX Excision of Liver, Percutaneous Endoscopic Approach, Diagnostic (ICD-10-PCS; 2017-06-07)
PROC: BF141ZZ Fluoroscopy of Gallbladder, Bile Ducts and Pancreatic Ducts using Low Osmolar Contrast (ICD-10-PCS; 2017-06-07)
PROC: 0FT44ZZ Resection of Gallbladder, Percutaneous Endoscopic Approach (ICD-10-PCS; principal; 2017-06-07 09:00)
DX: K80.00 Calculus of gallbladder with acute cholecystitis without obstruction (principal); N39.0 Urinary tract infection, site not specified; K76.0 Fatty (change of) liver, not elsewhere classified; M32.9 Systemic lupus erythematosus, unspecified; M79.7 Fibromyalgia; G89.4 Chronic pain syndrome; I10 Essential (primary) hypertension; K59.00 Constipation, unspecified; B96.20 Unspecified Escherichia coli [E. coli] as the cause of diseases classified elsewhere; Z16.12 Extended spectrum beta lactamase (ESBL) resistance
CPT/HCPCS: 36415; 74177; 74181; 74300; 76705; 80048; 80053; 81001; 82150; 82550; 82553; 83540; 83690; 83735; 84100; 84443; 84466; 84484; 85025; 85610; 85730; 86255; 86850; 86900; 87086; 87186; 88304; 88307; 88313; 93005; 99284; J0360; J1100; J2001; J2185; J2250; J2270; J2405; J7030; Q9967

== ENCOUNTER 2017-07-31 22:42 | Emergency (ER) | payer MEDICARE ==
[~2017-07-31] VITALS: Ht 162.6 cm; Wt 78.0 kg
[~2017-07-31 22:42] MED LIST changes: +BACTRIM DS TAB1 EACH PO; +TYLENOL WITH C1 EACH PO
--- OUTSIDE RECORDS SUMMARY | 2017-07-31 22:44 | XMS REPORT ---
Author Author [facility] Address Unknown Phone Unavailable Care Team Providers Care Closing Specialist Name Role Phone TORRI MCCARTHY Unavailable Unavailable Problems This patient has no known problems. Allergies, Adverse Reactions, Alerts This patient has no known allergies or adverse reactions. Medications This patient has no known medications. Results Test Description Test Time Test Comments Text Results Atomic Results Result Comments CHOLANGIOGRAM INTROP [place] [address] Patient Name: ROSS PRUETT MR #: [id number] : 1950 Age/Sex: 66/F Req #: [id number] Adm Physician: TORRI MCCARTHY MD Ordered by: GERALD NEWMAN MD Report #: [id number] Location: MED/SURG2 Room/Bed: [facility] Procedure: [id number] DX/CHOLANGIOGRAM INTROP Exam Date: 06/07 Exam Time: 1230 REPORT STATUS: Signed Exam: Cholangiogram History: Cholecystitis, suspect CBD stone Comparison: MRI/MRCP 06/06/2019 819 Findings: Multiple fluoroscopic images of the right upper quadrant during cholangiogram are submitted for interpretation. No filling defects are identified in the common bile duct. There is abrupt narrowing of the most distal portion of the CBD at the ampulla. Contrast is noted in the duodenum. Impression: 1. No filling defects to suggest stones in the CBD. 2. Abrupt narrowing of the most distal portion of the CBD at the ampulla. This was not clearly seen in the prior MRCP, and there is no evidence of pancreatic ductal dilation on the MRCP. While this may reflect contraction of the ampullary portion, a stricture is also a consideration. Signed by: Dr. Elver Vernon M.D. on 06/07/2017 3:50 PM Dictated By: ELVER VERNON MD 49 Transcribed By: KAMALJIT on 1549 COPY TO: GERALD NEWMAN MD MRI MRCP WO [place] [address] Patient Name: ROSS PRUETT MR #: [id number] : 1950 Age/Sex: 66/F Req #: [id number] Adm Physician: TORRI MCCARTHY MD Ordered by: DANNY HERNANDEZ MD Report #: [id number] Location: MED/SURG2 Room/Bed: [facility] _ Procedure: [id number] MRI/MRI MRCP WO Exam Date: Exam Time: REPORT STATUS: Signed EXAM: MRI MRCP WO DATE: 2017 9:50 PM INDICATION: Concern for common bile duct stone. COMPARISON: Ultrasound dated 06/05/2017, CT dated 06/04/2017 TECHNIQUE: MRCP protocol performed using1.5 Magalie. Sequences obtained include axial T2 FRFSE FS, coronal and axial T2 SSFSE, SSFSE coronal spins. FINDINGS: Multiple hepatic T2 hyperintense lesions are probably cysts. The largest in left hepatic lobe measures 1.4 cm and in right hepatic lobe measuring 1.9 cm ( series 4, image 8). The gallbladder is normal in appearance without wall thickening or pericholecystic fluid. Small dependent gallstones are visualized. The common bile duct is dilated up to 12mm. There are no filling defects or strictures. No intrahepatic biliary dilation. Within the limitations of the exam, the spleen, pancreas and adrenal glands are unremarkable. Visualized bowel loops are unremarkable. No evidence of bowel obstruction. No upper abdominal free fluid or lymphadenopathy. The soft tissues and bones are unremarkable. IMPRESSION: Mild to moderately distended common bile duct without evidence of choledocholithiasis. Cholelithiasis without evidence of cholecystitis. Signed by: Dr. Raj Hobson MD on 06/06/2017 3:10 PM Dictated By: RAJ HOBSON MD 09 Transcribed By: KAMALJIT on 06/06/171509 COPY TO: DANNY HERNANDEZ MD GALLBLADDER [place] [address] Patient Name: ROSS PRUETT MR #: [id number] : 1950 Age/Sex: 66/F Req #: [id number] Adm Physician: TORRI MCCARTHY MD Ordered by: GERALD NEWMAN MD Report #: [id number] Location: [facility] Room/Bed: [place] [address] Procedure: [id number] US/US GALLBLADDER Exam Date: 06/05/17 Exam Time: 0953 REPORT STATUS: Signed EXAM: RU ULTRASOUND Date: 06/05/2017 7:56 AM Indication: Comparison: None Technique: Sonographic evaluation of the right upper quadrant. Color doppler was utilized to supplement evaluation. FINDINGS: LIVER: No focal lesion is identified. The liver measures 18.8 cm in the right midclavicular line. Echotexture is normal. 1 cm simple cyst incidentally noted left hepatic lobe. BILIARY: Multiple shadowing gallstones are present, largest measuring 0.8 cm. Gallbladder wall is thickened, possibly due to nondistention. The common bile duct measures 0.3 cm. No sonographic Fletcher sign reported. PANCREAS: The pancreas is incompletely visualized due to overlying bowel gas, but no abnormality identified involving the visualized portions of the pancreas. RIGHT KIDNEY: Measures 8.9 cm in length. No hydronephrosis or solid mass lesion identified. PERITONEUM: No free fluid. VASCULATURE: Aorta: Visualized portions appear unremarkable. Interior vena cava : Visualized portions appear unremarkable. Portal Vein: Nondilated with hepatopedal flow. IMPRESSION: Multiple shadowing gallstones with no thickening of the common duct and no sonographic Fletcher sign reported. Gallbladder wall thickening may be due to nondistention. Clinical and laboratory correlation for cholecystitis recommended, however. Signed by: Dr. Danica Hudson MD on 06/05/2017 11:21 AM Dictated By: DANICA HUDSON MD 1121 Transcribed By: KAMALJIT on 06/05/17 1121 COPY TO: GERALD NEWMAN MD CT ABDOMEN/PELVIS W [place] [address] Patient Name: ROSS PRUETT MR #: [id number] : 1950 Age/Sex: 66/F Req #: [id number] Adm Physician: Ordered by: JAMIE RIOS MD Report # : [id number] Location: ER Room/Bed: Procedure: [id number] CT/CT ABDOMEN/PELVIS W Exam Date: 06/04/17 Exam Time: 2322 REPORT STATUS: Signed EXAM: CT ABDOMEN AND PELVIS with IV CONTRAST DATE: 06/04/2017 8:25 PM Time stamp on Exam: 2326 hours INDICATION: Upper abdominal pain, radiates to left side COMPARISON: None TECHNIQUE: The abdomen and pelvis were scanned using a multidetector helical scanner. Coronal and sagittal reformations were obtained. Routine protocol performed. IV Contrast: 100 cc Isovue-370 Oral Contrast: Gastrografin CTDIvol has been reviewed. It is below the limits set by the Radiation Protocol Committee (RPC). FINDINGS: LOWER THORAX: No consolidations LIVER : Simple cysts in the liver. BILIARY: Diffuse gallbladder wall thickening and pericholecystic inflammation. SPLEEN: No masses PANCREAS: No masses ADRENALS: No nodules KIDNEYS: Symmetric perfusion. No enhancing masses. No hydronephrosis. GI TRACT: No distention, wall thickening or evidence of obstruction. VESSELS: Mild atherosclerotic changes without aneurysm. PERITONEUM/RETROPERITONEUM: No free air or fluid LYMPH NODES: No lymphadenopathy REPRODUCTIVE ORGANS: Unremarkable BLADDER: Unremarkable SOFT TISSUES: Unremarkable BONES: No suspicious bone lesions. IMPRESSION: Nonspecific gallbladder wall thickening and mild surrounding inflammation. Consider acute cholecystitis. Signed by: Dr. Munira Wise M.D. on 06/05/2017 12:02 AM Dictated By: MUNIRA WISE MD Transcribed By: KAMALJIT on 06/05/17 0002 COPY TO: JAMIE RIOS MD [place] [address] Patient Name: ROSS PRUETT MR #: [id number] : 1950 Age/Sex: 66/F Req #: [id number] Adm Physician: TORRI MCCARTHY MD Ordered by: Gwendolyn Roach NP Report #: [id number] Location: MED/SURG3 Room/Bed: [facility] _ Procedure: [id number] MRI/MRA ABDOMEN WOW Exam Date: 04/13/17 Exam Time: 1450 REPORT STATUS: Signed CARDIOVASCULAR MRI T MRA OF THE ABDOMEN Comparison: None Indication: Technique: [employer] 1.5 T MRI scanner. * T2 Haste imaging for anatomic definition. * Contrast-enhanced volume sets acquired for three- dimensional MRA reconstructions after injection of gadolinium-chelate ( Multihance, 15 cc). * For more optimal morphologic evaluation, off-line advanced post-processing of the 3-D data was performed (using multiplanar, zebvlxo-[id number], and/or volume-rendered reconstructions). FINDINGS: ABDOMINAL AORTA: The abdominal aorta is normal in course, caliber and contour. There is no evidence for acute aortic pathology. The celiac artery and SMA are widely patent without significant atherosclerotic disease. Major mesenteric branches are widely patent. Renal arteries: bilateral single renal arteries are normal in caliber and widely patent. No atherosclerotic changes or wall thickening identified. The abdominal aorta measures: 2.9 cm at the supramesenteric segment 2.3 cm at the mesenteric segment 1.7 cm at the renal segment 1.6 cm at the mid infrarenal segment 1.6 cm at the aortic bifurcation. LOWER CHEST: Unremarkable. ABDOMEN: The liver, gallbladder, spleen, adrenal glands, and bilateral kidneys appear unremarkable. BONES AND SOFT TISSUES: Unremarkable on limited evaluation. IMPRESSION: Normal abdominal aorta. Patent mesenteric arteries and major branches without significant atherosclerosis. Signed by: Dr. Odalis iDaz M.D. on 04/15/2017 11:04 AM Dictated By: ODALIS DIAZ MD 1106 Transcribed By: KAMALJIT on 04/15/17 110 COPY TO: GWENDOLYN ROACH NP CHEST [facility] (PORTABLE) [place] [address] Patient Name: ROSS PRUETT MR #: [id number] : 1950 Age/Sex: 66/F Req #: [id number] [facility] Physician: TORRI MCCARTHY MD Ordered by: Gwendolyn Roach NP Report #: [id number] Location: MED/SURG3 Room/Bed: [facility] Procedure: [id number] DX/CHEST SINGLE (PORTABLE) Exam Date: 04/11/17 Exam Time: 1230 REPORT STATUS: Signed PROCEDURE: CHEST SINGLE (PORTABLE) TECHNIQUE: Portable AP chest INDICATION: Congestion; cough COMPARISON: [facility], DX, CHEST 2 VIEWS, 05/23/2012, 16:01. FINDINGS: The lungs are clear and symmetrically inflated. No pleural effusions. Normal heart size. Mildly tortuous thoracic aorta. Left axillary surgical clips. Intact skeleton. Please note the study is mislabeled right/left. CONCLUSION: No acute abnormality. Mislabeled study. Dictated by: Nathen Mclean M.D. on 04/11/2017 at 12:53 Electronically approved by: Nathen Mclean M.D. on 04/11/2017 at 12:53 Dictated By: NATHEN MCLEAN MD 1253 Transcribed By: ESCOBAR on 04/11/17 1253 COPY TO: GWENDOLYN ROACH NP
[2017-07-31] MEDS ORDERED: PANTOPRAZOLE 40 MG 10ML VIAL IV STA (22:59)
[2017-07-31] MEDS ORDERED: SODIUM CHLORIDE 0.9% 1000ML 1,000 ML IV STA (22:59)
[2017-07-31] MEDS ORDERED: LISINOPRIL20 MG PO (23:00)
[2017-07-31] MEDS ORDERED: GABAPENTIN100 MG PO (23:00)
[2017-07-31 23:10] LABS: BASOPHILS % 0.3 % (0.0-1.0); EOSINOPHILS # (AUTO) 0.1 (0.0-0.4); EOSINOPHILS % 0.9 % (0.0-6.0); HEMATOCRIT 37.6 % (34.2-44.1); HEMOGLOBIN 12.4 g/dL (12.0-16.0); LYMPHOCYTES % 38.2 % (18.0-39.1); MEAN CORPUSCULAR HEMOGLOBIN 30.5 pg (28-32); MEAN CORPUSCULAR VOLUME 92.6 fL (81-99); MONOCYTES # (AUTO) 0.9 (0.2-0.8); MONOCYTES % 11.2 % (4.4-11.3); NEUTROPHILS # (AUTO) 3.9 (2.1-6.9); NEUTROPHILS % 49.3 % (38.7-80.0); PLATELET COUNT 212 x10e3/uL (140-360); RED BLOOD COUNT 4.06 x10e6/uL (3.6-5.1); RED CELL DISTRIBUTION WIDTH 13.8 % (11.7-14.4)
[2017-07-31 23:22] LABS: ALANINE AMINOTRANSFERASE 26 IU/L (0-55); ALBUMIN 3.5 g/dL (3.5-5.0); ALBUMIN/GLOBULIN RATIO 1.1 (0.8-2.0); ALKALINE PHOSPHATASE 160 IU/L (40-150); AMYLASE 74 U/L (25-125); ANION GAP 12.7 mmol/L (8-16); BLOOD UREA NITROGEN 13 mg/dL (7-26); CARBON DIOXIDE 27 mmol/L (22-29); CHLORIDE 106 mmol/L (98-107); CREATINE KINASE 27 IU/L (29-168); GLUCOSE 97 mg/dL (74-118); LIPASE 25 U/L (8-78); POTASSIUM 3.7 mmol/L (3.5-5.1); SODIUM 142 mmol/L (136-145)
[2017-07-31 23:24] LABS: BUN/CREATININE RATIO 16 (6-25); CREATININE, SERUM 0.83 mg/dL (0.57-1.11); EST GLOMERULAR FILTRATION RATE > 60 ML/MIN (60-)
[2017-07-31] MEDS ORDERED: IOPAMIDOL 370 MG/ML 200 ML INFUS..BTL INJ ONE (23:36)
[2017-07-31 23:52] LABS: BILIRUBIN,URINE NEGATIVE (NEGATIVE); KETONES,URINE NEGATIVE (NEGATIVE); LEUKOCYTE ESTERASE ,URINE 2+ (NEGATIVE); NITRITE,URINE NEGATIVE (NEGATIVE); PROTEIN,URINE DIPSTICK NEGATIVE (NEGATIVE); URINE UROBILINOGEN 0.2 mg/dL (0.2 - 1)
[2017-07-31 23:53] LABS: CLARITY,URINE CLEAR (CLEAR); COLOR,URINE YELLOW (YELLOW)
[2017-07-31 23:58] LABS: BACTERIA,URINE RARE /HPF; EPITHELIAL CELLS,URINE FEW /LPF; MUCUS,URINE MODERATE (RARE)
--- NOTE | 2017-08-01 01:05 | Diagnostic Imaging Report ---
EXAM: CT Abdomen and Pelvis WITH contrast INDICATION: Right upper quadrant abdominal pain status post cholecystectomy on 06/07/2017, chronic pain COMPARISON: MRCP on 06/06/2017 TECHNIQUE: Abdomen and pelvis were scanned utilizing a multidetector helical scanner from the lung base to the pubic symphysis after administration of IV contrast. Coronal and sagittal reformations were obtained. Routine protocol was performed. Scan was performed when during portal venous phase. IV CONTRAST: 100 mL of Isovue-370 ORAL CONTRAST: None RADIATION DOSE: Total DLP: 398.51 mGy*cm Estimated effective dose: (DLP x 0.015 x size factor) mSv COMPLICATIONS: None FINDINGS: LINES and TUBES: None. LOWER THORAX: Unremarkable HEPATOBILIARY: There are few scattered hypodensities in the liver, water density compatible with liver cysts. There is a single 2.1 cm hypodense lesion adjacent to the gallbladder fossa which measures 35 Hounsfield units compatible with seroma/hematoma from recent resection. . There is central intrahepatic and mild extrahepatic biliary dilatation, slightly increased when compared with prior examination . This finding can be reactive, however, correlation with direct bilirubin is recommended GALLBLADDER: There are cholecystectomy clips. SPLEEN: No splenomegaly. PANCREAS: No focal masses or ductal dilatation. ADRENALS: No adrenal nodules KIDNEYS/URETERS: Kidneys enhance symmetrically. No hydronephrosis. No cystic or solid mass lesions. No stones. GI TRACT: No abnormal distention, wall thickening, or evidence of bowel obstruction. Appendix is normal. PELVIC ORGANS/BLADDER: The uterus is absent. Bilateral ovaries are unremarkable. LYMPH NODES: No lymphadenopathy. VESSELS: Unremarkable. PERITONEUM / RETROPERITONEUM: No free air or fluid. BONES: Unremarkable. SOFT TISSUES: Unremarkable. IMPRESSION: 1. No evidence of acute intra-abdominal or pelvic abnormality. 2. Patient is status post cholecystectomy with reactive intra and extrahepatic biliary dilatation. No evidence of choledocholithiasis. 3. Small hematoma at the cholecystectomy bed. Signed by: Dr. Dallin Jain M.D. on 08/01/2017 1:01 AM
[2017-08-01 01:27] VITALS: BP 160/98
== END 2017-08-01 01:45 | disposition home or self-care (01) ==
LOC: ER 22:42
DX: R10.11 Right upper quadrant pain (principal); R10.13 Epigastric pain; R11.0 Nausea; I10 Essential (primary) hypertension; Z85.3 Personal history of malignant neoplasm of breast; Z86.73 Personal history of transient ischemic attack (TIA), and cerebral infarction without residual deficits
CPT/HCPCS: 36415; 74177; 80053; 81001; 82150; 82550; 82553; 83690; 84484; 85025; 87086; 99284; J7030; Q9967

== ENCOUNTER 2017-09-18 13:30 | Inpatient (IN) | payer MEDICARE, OTHER ==
[~2017-09-18] VITALS: Ht 162.6 cm; Wt 78.5 kg
[~2017-09-18 13:30] MED LIST changes: +LISINOPRIL20 MG PO
--- OUTSIDE RECORDS SUMMARY | 2017-09-18 13:33 | XMS REPORT | Continuity of Care Document ---
Author Author [facility] Organization [facility] Address [address] [place] [address] Phone Unavailable Care Team Providers Care Hospitalist Name Role Phone LORENZOEFREM BRIZUELA PCP Insurance Providers Guarantor LonRoss Babcock Address [address] [place] [address] Email [email or web address] Payer Medicare A & B Policy Number [id number] Subscriber's Name Ross Pruett Sadiq Relationship 18 Self / Same As Patient Group Name RETIRED Effective Date 08 Advance Directives Directive Response Recorded Date/Time Does the patient have an advance directive? No 06/05/17 3:39pm If yes, is advance directive on file with [facility]? No 04/10/17 6:21am If not on file with [facility] will patient provide a copy? Yes 08/01/17 1:40am Do you have a Directive to Physician? No 08/01/17 1:40am Do you have a Medical Power of Food Mixer Repairer? No 08/01/17 1:40am Do you have an out of hospital Do Not Resuscitate Order? No 08/01/17 1:40am Do you have any special needs we should be aware of? No 08/01/17 1:40am Do you have a support person here with you today? Yes 08/01/17 1:40am Did patient receive Notice of Privacy Practices? Yes 08/01/17 1:40am Did patient receive patient rights and responsibilities? Yes 08/01/17 1:40am Problems Medical Problem Onset Date Status Cholecystitis Unknown Elevated LFTs Unknown UTI (urinary tract infection) Unknown Medications Current Home Medications Medication Dose Units Route Directions Days Qty Instructions Start Date Acetaminophen/Hydrocodone Bitart ([place] 10MG-325MG*) 1 Ea Tab 1 Tab Oral Every 4 Hours as needed for Pain Alprazolam (Xanax) 2 Mg Tablet 2 Mg Oral Three Times A Day Fluoxetine Hcl (Prozac) 20 Mg Capsule 40 Mg Oral Daily Gabapentin 100 Mg Capsule 200 Mg Oral Three Times A Day Lisinopril (Prinavil / Zestril) 20 Mg Tablet 20 Mg Oral Daily Morphine Sulfate (Morphine Sulfate Er) 30 Mg Tablet.er 30 Mg Oral Twice A Day Zolpidem Tartrate (Ambien) 10 Mg Tablet 10 Mg Oral Bedtime 30 Tab Past Home Medications Medication Directions Ordered Status Ciprofloxacin Hcl (Cipro) 500 Mg Tablet, 500 Mg Oral Every 12 Hours 04/15/17 Discontinued Social History Social History Problem Response Recorded Date/Time Onset Date Status Hx Psychiatric Problems No 06/05/2017 3:39pm Not Applicable Not Applicable Hx Eating Disorder No 06/05/2017 3:39pm Not Applicable Not Applicable Hx Substance Use Disorder No 06/05/2017 3:39pm Not Applicable Not Applicable Hx Depression No 06/05/2017 3:39pm Not Applicable Not Applicable Hx Alcohol Use No 06/05/2017 3:39pm Not Applicable Not Applicable Hx Substance Use Treatment No 06/05/2017 3:39pm Not Applicable Not Applicable Hx Physical Abuse No 06/05/2017 3:39pm Not Applicable Not Applicable Smoking Status Start Date Stop Date Current every day smoker Hospital Discharge Instructions No hospital discharge instruction information available. Plan of Care Discharge Date 08/01/17 1:45am Disposition HOME, SELF-CARE Condition at Discharge Stable Instructions/Education Provided Abdominal Pain - Adult Prescriptions See Medication Section Referrals EFREM VENTURA DO Address: [address] [place] [address] GERALD NEWMAN MD Address: [address] [place] [address] Additional Instructions/Education REST; DRINK PLENTY OF WATER; FOLLOW UP WITH YOUR PCP; Functional Status No functional status information available. Allergies, Adverse Reactions, Alerts Allergen Type Severity Reaction Status Last Updated NSAIDS (Non-Steroidal Anti-Inflamma Allergy Unknown Active 04/09/17 Immunizations No immunization information available. Vital Signs Acute Vital Signs Vital Response Date/Time Temperature (Fahrenheit) 98.4 degrees F (97.6 - 99.5) 06/09/2017 4:00pm Pulse Pulse Rate (adult) 79 bpm (60 - 90) 08/01/2017 1:27am Respiratory Rate 14 bpm (12 - 24) 08/01/2017 1:27am Blood Pressure 160/98 mm Hg 08/01/2017 1:27am Height 5 ft 4 in 07/31/2017 10:45pm Weight 172 lb 07/31/2017 10:45pm Body Mass Index 29.5 kg/m^2 07/31/2017 10:45pm Results Laboratory Results Test Name Result Units Flags Reference Collection Date/Time Result Date/ Time Comments Bedside Glucose 152 mg/dL H 70-120 04/14/2017 8:00pm 04/14/2017 8:29pm Meter ID: [id number] Triglycerides Level 100 MG/DL 0-149 04/10/2017 7:00am 04/10/2017 8: 10am Cholesterol Level 165 MD/DL 0-199 04/10/2017 7:00am 04/10/2017 8:10am Less than 200 mg/dL Low Risk 201 - 239 mg/dL Borderline Risk 240 mg/dl and greater High Risk LDL Cholesterol 95 MG/DL 60-130 04/10/2017 7:00am 04/10/2017 8:10am HDL Cholesterol 50 MG/DL 40-60 04/10/2017 7:00am 04/10/2017 8:10am Cholesterol/HDL Ratio 3.3 3.0-3.6 04/10/2017 7:00am 04/10/2017 8: 10am Clostridium Difficile Toxin A & B NEGATIVE NEGATIVE 04/10/2017 9:10pm 04/11/2017 1:56pm Testing on stool aspirate specimens is outside pharmacist aide claims since specimen type not validated on this assay. Prothrombin Time 12.8 seconds 11.9-14.5 06/06/2017 4:40pm 06/06/2017 5: 12pm Prothromb Time International Ratio 0.92 06/06/2017 4:40pm 2017 5:12pm Oral Anticoagulant Therapy INR Values: 1. Low Intensity Therapy 1.5 - 2.0 2. Moderate Intensity Therapy 2.0 - 3.0 3. High Intensity Therapy(1) 2.5 - 3.5 4. High Intensity Therapy(2) 3.0 - 4.0 5. Panic Value INR > 5.0 Activated Partial Thromboplast Time 35.9 seconds H 23.8-35.5 06/06/2017 4 :40pm 06/06/2017 5:12pm Urine Transitional Epithelial Cells FEW H NONE 06/04/2017 11:15pm 11:54pm Phosphorus Level 2.2 MG/DL L 2.3-4.7 06/09/2017 5:42am 06/09/2017 6: 30am Magnesium Level 1.6 MG/DL 1.3-2.1 06/09/2017 5:42am 06/09/2017 6:30am Iron Level 169 ug/dL 50-170 06/06/2017 6:15am 06/06/2017 7:52am Total Iron Binding Capacity 262 ug/dL 261-478 06/06/2017 6:15am 2017 7:52am Percent Iron Saturation 65 % H 15-50 06/06/2017 6:15am 06/06/2017 7: 52am Transferrin 187 mg/dL 180-382 06/06/2017 6:15am 06/06/2017 7:52am Thyroid Stimulating Hormone (TSH) 2.227 uIU/mL 0.350-4.940 06/06/2017 6: 15am 06/06/2017 7:57am Hepatitis A IgM Antibody Negative 06/05/2017 11:56am 06/09/2017 10: 22am Hepatitis B Surface Antigen Negative 06/05/2017 11:56am 06/09/2017 10:22am Hepatitis B Core IgM Antibody Negative 06/05/2017 11:56am 2017 10:22am Hepatitis C Antibody <0.1 06/05/2017 11:56am 06/09/2017 10:22am Reference Range: 0.0 - 0.9 s/co ratio Negative: < 0.8 Indeterminate: 0.8 - 0.9 Positive: > 0.9 The CDC recommends that a positive HCV antibody result be followed up with a HCV Nucleic Acid Amplification test ([id number]). [facility] [address] [address] Dir: Jaime Solorzano MD For inquiries, the physician may contact Branch: [phone] Lab: [phone] Anti-Mitochondrial Antibody 3.7 Units 0.0-20.0 06/06/2017 6:15am 2017 6:19am Negative 0.0 - 20.0 Equivocal 20.1 - 24.9 Positive >24.9 Mitochondrial (M2) Antibodies are found in 90-96% of patients with primary biliary cirrhosis. Performed at: [facility] [id number] Bath Solution Maker: Chito Mclean MD, Phone: [phone] Anti-Smooth Muscle Antibody 8 Units 0-19 06/06/2017 6:15am 06/09/2017 6 :19am Negative 0 - 19 Weak positive 20 - 30 Moderate to strong positive >30 Actin Antibodies are found in 52-85% of patients with autoimmune hepatitis or chronic active hepatitis and in 22% of patients with primary biliary cirrhosis. White Blood Count 7.86 x10e3/uL 4.8-10.8 07/31/2017 10:55pm 07/31/2017 11:10pm Red Blood Count 4.06 x10e6/uL 3.6-5.1 07/31/2017 10:55pm 07/31/2017 11: 10pm Hemoglobin 12.4 g/dL 12.0-16.0 07/31/2017 10:55pm 07/31/2017 11:10pm Hematocrit 37.6 % 34.2-44.1 07/31/2017 10:55pm 07/31/2017 11:10pm Mean Corpuscular Volume 92.6 fL 81-99 07/31/2017 10:55pm 07/31/2017 11: 10pm Mean Corpuscular Hemoglobin 30.5 pg 28-32 07/31/2017 10:55pm 2017 11:10pm Mean Corpuscular Hemoglobin Concent 33.0 g/dL 31-35 07/31/2017 10:55pm 07/31/2017 11:10pm Red Cell Distribution Width 13.8 % 11.7-14.4 07/31/2017 10:55pm 2017 11:10pm Platelet Count 212 x10e3/uL 140-360 07/31/2017 10:55pm 07/31/2017 11: 10pm Neutrophils (%) (Auto) 49.3 % 38.7-80.0 07/31/2017 10:55pm 07/31/2017 11:10pm Lymphocytes (%) (Auto) 38.2 % 18.0-39.1 07/31/2017 10:55pm 07/31/2017 11:10pm Monocytes (%) (Auto) 11.2 % 4.4-11.3 07/31/2017 10:55pm 07/31/2017 11: 10pm Eosinophils (%) (Auto) 0.9 % 0.0-6.0 07/31/2017 10:55pm 07/31/2017 11: 10pm Basophils (%) (Auto) 0.3 % 0.0-1.0 07/31/2017 10:55pm 07/31/2017 11: 10pm IM GRANULOCYTES % 0.1 % 0.0-1.0 07/31/2017 10:55pm 07/31/2017 11:10pm Neutrophils # (Auto) 3.9 2.1-6.9 07/31/2017 10:55pm 07/31/2017 11: 10pm Lymphocytes # (Auto) 3.0 1.0-3.2 07/31/2017 10:55pm 07/31/2017 11: 10pm Monocytes # (Auto) 0.9 H 0.2-0.8 07/31/2017 10:55pm 07/31/2017 11: 10pm Eosinophils # (Auto) 0.1 0.0-0.4 07/31/2017 10:55pm 07/31/2017 11: 10pm Basophils # (Auto) 0.0 0.0-0.1 07/31/2017 10:55pm 07/31/2017 11:10pm Absolute Immature Granulocyte (auto 0.01 x10e3/uL 0-0.1 07/31/2017 10: 55pm 07/31/2017 11:10pm Urine Color YELLOW YELLOW 07/31/2017 10:55pm 07/31/2017 11:53pm Urine Clarity CLEAR CLEAR 07/31/2017 10:55pm 07/31/2017 11:53pm Urine Specific [place] 1.020 1.010-1.025 07/31/2017 10:55pm 2017 11:53pm Urine pH 5 5 - 7 07/31/2017 10:55pm 07/31/2017 11:53pm Urine Leukocyte Esterase 2+ H NEGATIVE 07/31/2017 10:55pm 07/31/2017 11:53pm Urine Nitrite NEGATIVE NEGATIVE 07/31/2017 10:55pm 07/31/2017 11: 53pm Urine Protein NEGATIVE NEGATIVE 07/31/2017 10:55pm 07/31/2017 11: 53pm Urine Glucose (UA) NEGATIVE NEGATIVE 07/31/2017 10:55pm 07/31/2017 11 :53pm Urine Ketones NEGATIVE NEGATIVE 07/31/2017 10:55pm 07/31/2017 11: 53pm Urine Urobilinogen 0.2 mg/dL 0.2 - 1 07/31/2017 10:55pm 07/31/2017 11: 53pm Urine Bilirubin NEGATIVE NEGATIVE 07/31/2017 10:55pm 07/31/2017 11: 53pm Urine Blood 2+ H NEGATIVE 07/31/2017 10:55pm 07/31/2017 11:53pm Urine WBC 6-10 /HPF H 0-5 07/31/2017 10:55pm 07/31/2017 11:58pm Urine RBC 6-10 /HPF H 0-5 07/31/2017 10:55pm 07/31/2017 11:58pm Urine Bacteria RARE /HPF NONE 07/31/2017 10:55pm 07/31/2017 11:58pm Urine Epithelial Cells FEW /LPF NONE 07/31/2017 10:55pm 07/31/2017 11: 58pm Urine Mucus MODERATE H RARE 07/31/2017 10:55pm 07/31/2017 11:58pm Sodium Level 142 mmol/L 136-145 07/31/2017 10:55pm 07/31/2017 11:23pm Potassium Level 3.7 mmol/L 3.5-5.1 07/31/2017 10:55pm 07/31/2017 11: 23pm Chloride Level 106 mmol/L 98-107 07/31/2017 10:55pm 07/31/2017 11:23pm Carbon Dioxide Level 27 mmol/L 22-29 07/31/2017 10:55pm 07/31/2017 11: 23pm Anion Gap 12.7 mmol/L 8-16 07/31/2017 10:55pm 07/31/2017 11:23pm Blood Urea Nitrogen 13 mg/dL 7-07/31/2017 10:55pm 07/31/2017 11: 23pm Creatinine 0.83 mg/dL 0.57-1.11 07/31/2017 10:55pm 07/31/2017 11:27pm BUN/Creatinine Ratio 16 6-25 07/31/2017 10:55pm 07/31/2017 11:27pm Estimat Glomerular Filtration Rate > 60 ML/MIN 60- 07/31/2017 10:55pm 07/31/2017 11:27pm Ranges were taken from the National Kidney Disease Education Program and the National Kidney Foundation literature. Reference ranges: 60 or greater: Normal 16-59 (for 3 consecutive months): Chronic kidney disease 15 or less: Kidney failure Glucose Level 97 mg/dL 74-118 07/31/2017 10:55pm 07/31/2017 11:23pm Calcium Level 9.0 mg/dL 8.4-10.2 07/31/2017 10:55pm 07/31/2017 11:23pm Total Bilirubin < 0.3 mg/dL 0.2-1.2 07/31/2017 10:55pm 07/31/2017 11: 23pm Aspartate Amino Transf (AST/SGOT) 13 IU/L 5-34 07/31/2017 10:55pm 07/31 11:23pm Alanine Aminotransferase (ALT/SGPT) 26 IU/L 0-55 07/31/2017 10:55pm 03/2018 11:23pm Total Protein 6.8 g/dL 6.5-8.1 07/31/2017 10:55pm 07/31/2017 11:23pm Albumin 3.5 g/dL 3.5-5.0 07/31/2017 10:55pm 07/31/2017 11:23pm Globulin 3.3 g/dL 2.3-3.5 07/31/2017 10:55pm 07/31/2017 11:23pm Albumin/Globulin Ratio 1.1 0.8-2.0 07/31/2017 10:55pm 07/31/2017 11: 23pm Alkaline Phosphatase 160 IU/L H 40-150 07/31/2017 10:55pm 07/31/2017 11: 23pm Creatine Kinase 27 IU/L L 29-168 07/31/2017 10:55pm 07/31/2017 11:23pm Creatine Kinase MB 0.80 ng/mL 0-5.0 07/31/2017 10:55pm 07/31/2017 11: 49pm Troponin I < 0.001 ng/mL 0-0.300 07/31/2017 10:55pm 07/31/2017 11:49pm Amylase Level 74 U/L 25-125 07/31/2017 10:55pm 07/31/2017 11:23pm Lipase 25 U/L 8-78 07/31/2017 10:55pm 07/31/2017 11:23pm Microbiology Results Procedure Source Organism/Result Collection Date/Time Result Date/Time Result Status Blood Culture Blood NO GROWTH AFTER 5 DAYS, FINAL REPORT 04/10/2017 11: 45am 04/15/2017 12:09pm Final Urine Culture Urine,Clean Catch ESCHERICHIA COLI-ESBL 06/04/2017 11:15pm 06/06/2017 7:13am Final Procedures Procedure Status Date Provider(s) EXCISION OF LEFT LARGE INTESTINE, ENDO, DIAGN Completed 04/13/17 HAYDEN NUÑEZ MD RESECTION OF GALLBLADDER, PERCUTANEOUS ENDOSCOPIC APPROACH Completed GERALD NEWMAN MD EXCISION OF LIVER, PERCUTANEOUS ENDOSCOPIC APPROACH, DIAGN Completed GERALD NEWMAN MD FLUOROSCOPY OF GALLBL, BILE, PANCR DUCT USING L OSM CONTRAST Completed GERALD NEWMAN MD Magnetic resonance angiography of abdomen without then with contrast Active 04/13/17 GWENDOLYN ROACH NP Computed tomography of abdomen and pelvis with contrast Active 06/04/17 JAMIE RIOS MD US gallbladder Active 06/05/17 GERALD NEWMAN MD Magnetic resonance cholangiopancreatography (MRCP) without contrast Active DANNY HERNANDEZ MD Computed tomography of abdomen and pelvis with contrast Active 07/31/17 SUSHANT MARKS MD Encounters Encounter Location Arrival/Admit Date Discharge/Depart Date Attending Provider Departed Emergency Room [facility] 07/31/17 10:42pm 08/01 1:45am SUSHANT MARKS MD Discharged [facility]patient [facility] 06/05/17 2:01am 06/09/17 6:51pm TORRI MCCARTHY MD Discharged [facility]patient [facility] 04/09/17 10:52pm 8:54pm TORRI MCCARTHY MD
[2017-09-18] MEDS ORDERED: HYDROCODONE/APAP 10MG-325MG TAB PO ONE (13:45)
[2017-09-18 14:21] LABS: BASOPHILS % 0.2 % (0.0-1.0); EOSINOPHILS # (AUTO) 0.1 (0.0-0.4); EOSINOPHILS % 0.9 % (0.0-6.0); HEMATOCRIT 38.2 % (34.2-44.1); HEMOGLOBIN 13.1 g/dL (12.0-16.0); LYMPHOCYTES # (AUTO) 1.8 (1.0-3.2); LYMPHOCYTES % 20.5 % (18.0-39.1); MEAN CORPUSCULAR HEMOGLOBIN 30.9 pg (28-32); MEAN CORPUSCULAR HGB CONC 34.3 g/dL (31-35); MEAN CORPUSCULAR VOLUME 90.1 fL (81-99); MONOCYTES # (AUTO) 0.8 (0.2-0.8); MONOCYTES % 9.2 % (4.4-11.3); PLATELET COUNT 233 x10e3/uL (140-360); RED BLOOD COUNT 4.24 x10e6/uL (3.6-5.1); RED CELL DISTRIBUTION WIDTH 12.8 % (11.7-14.4)
[2017-09-18 14:43] LABS: ALANINE AMINOTRANSFERASE 35 IU/L (0-55); ALBUMIN/GLOBULIN RATIO 0.8 (0.8-2.0); ALKALINE PHOSPHATASE 101 IU/L (40-150); ANION GAP 15.2 mmol/L (8-16); BLOOD UREA NITROGEN 11 mg/dL (7-26); BUN/CREATININE RATIO 15 (6-25); CALCIUM 9.3 mg/dL (8.4-10.2); CARBON DIOXIDE 26 mmol/L (22-29); CHLORIDE 104 mmol/L (98-107); CREATINE KINASE 104 IU/L (29-168); CREATININE, SERUM 0.75 mg/dL (0.57-1.11); EST GLOMERULAR FILTRATION RATE > 60 ML/MIN (60-); GLUCOSE 92 mg/dL (74-118); POTASSIUM 4.2 mmol/L (3.5-5.1); SODIUM 141 mmol/L (136-145)
[2017-09-18 15:03] LABS: THYROID STIMULATING HORMONE 0.206 uIU/mL (0.350-4.940)
--- NOTE | 2017-09-18 15:27 | Diagnostic Imaging Report ---
Bilateral hips - 2 views. Pelvis, AP HISTORY: Pain. COMPARISON: None available. FINDINGS: Bones: No acute displaced fracture. No expansile lytic or sclerotic lesion. Joints: The joint spaces are well-maintained. No dislocation. Soft tissues: The soft tissues appear unremarkable. Phleboliths are present in the pelvis. Surgical clips are present. IMPRESSION: No acute radiographic abnormality. Signed by: Dr. Tan Lopez M.D. on 09/18/2017 3:23 PM
--- NOTE | 2017-09-18 15:28 | Diagnostic Imaging Report ---
EXAMINATION: Chest, CHEST SINGLE (PORTABLE) INDICATION: Chest pain COMPARISON: None FINDINGS: LINES: None. Heart: Normal cardiac silhouette. Vascular: The pulmonary vasculature is within normal limits. Mediastinum: No mediastinal, hilar, or axillary mass or lymphadenopathy. Lungs: No parenchymal mass. No focal consolidation. Pleura: No pleural effusion. No pneumothorax. Bones: No acute osseous abnormality. Degenerative changes of the thoracic spine. Soft tissues: Surgical clips are present in the left axilla. Impression: No acute radiographic abnormality. Signed by: Dr. Tan Lopez M.D. on 09/18/2017 3:25 PM
--- NOTE | 2017-09-18 15:29 | Diagnostic Imaging Report ---
History:fall, head and neck pain. History: Fall, pain Comparison studies:None Technique: Axial images were obtained from the brain and cervical spine. Coronal and sagittal images reconstructed from the axial data. Intravenous contrast: None Findings: Head CT: Scalp/skull: No abnormalities. No fractures, blastic or lytic lesions. Brain sulci: Appropriate for age. Ventricles: Normal in size and configuration. No hydrocephalus. Extra-axial spaces: No masses. No fluid collections. Parenchyma: No abnormal densities. No masses, hemorrhage, acute or chronic cortical vascular insults. Sellar/suprasellar region: No abnormalities. Craniocervical junction: Patent foramen magnum. No Chiari one malformation. Cervical spine CT: Fractures: None. Soft tissues: No gross abnormalities. Atlantoaxial articulation: Intact. Alignment: Normal lordosis. No scoliosis. Cervicomedullary junction: No abnormalities. Patent foramen magnum. Vertebrae: No infection or neoplasm. Degenerative changes: Patent canal and foramina. Incidental findings: None. Impression: Head CT: 1. No acute cervical spine abnormalities. 2. Cannot exclude ligament, spinal cord and or vascular abnormalities on the basis of this examination. Cervical spine CT: 1. No abnormalities. 2. Cannot exclude ligament, spinal cord and or vascular abnormalities on the basis of this examination. Signed by: DR Tai Solorzano M.D. on 09/18/2017 3:26 PM
[2017-09-18 16:32] LABS: INR 1.16; PARTIAL THROMBOPLASTIN TIME 35.5 seconds (23.8-35.5); PROTHROMBIN TIME 13.9 seconds (11.9-14.5)
[2017-09-18 18:14] LABS: CLARITY,URINE SL CLOUDY (CLEAR); COLOR,URINE YELLOW (YELLOW); LEUKOCYTE ESTERASE ,URINE 1+ (NEGATIVE)
[2017-09-18 18:15] LABS: BILIRUBIN,URINE NEGATIVE (NEGATIVE); KETONES,URINE NEGATIVE (NEGATIVE); NITRITE,URINE POSITIVE (NEGATIVE); PROTEIN,URINE DIPSTICK NEGATIVE (NEGATIVE); URINE UROBILINOGEN 0.2 mg/dL (0.2 - 1)
[2017-09-18 18:22] LABS: WBC,URINE (MAN) 21-50 /HPF (0-5)
[2017-09-18 18:23] LABS: BACTERIA,URINE MANY /HPF; EPITHELIAL CELLS,URINE FEW /LPF; MUCUS,URINE MODERATE (RARE)
[2017-09-18] MEDS ORDERED: CEFTRIAXONE SOD 1 GM VIAL IV ONE (18:30)
[2017-09-18] MEDS ORDERED: ASPIRIN 81 MG CHEW TAB PO ONE (19:15)
[2017-09-18 20:10] VITALS: BP 178/96
[2017-09-18 20:20] VITALS: BP 178/96
[2017-09-18] MEDS ORDERED: HYDRALAZINE HCL 20 MG/ML VIAL IV PRN (21:45)
[2017-09-18] MEDS ORDERED: MEROPENEM 1GM 100 ML IV SCH (22:00)
[2017-09-18] MEDS: MEROPENEM 1 GM VIAL IV SCH (22:22)
[2017-09-18] MEDS: MORPHINE SULFATE 2 MG/ML SYR IV PRN (22:23)
[2017-09-18] MEDS: ONDANSETRON HCL 4 MG ORAL DISINTEGRATING TAB PO PRN (22:33)
[2017-09-19] VITALS (7 sets, daily range): BP systolic 109–156; BP diastolic 47–86
[2017-09-19 00:51] LABS: CREATINE KINASE MB 1.6 ng/mL (0-5.0)
[2017-09-19] MEDS: ONDANSETRON HCL 4 MG ORAL DISINTEGRATING TAB PO PRN (04:42)
[2017-09-19] MEDS: MORPHINE SULFATE 2 MG/ML SYR IV PRN (04:42)
[2017-09-19] MEDS: MEROPENEM 1 GM VIAL IV SCH ×3 (05:17→22:00)
[2017-09-19 07:24] LABS: BASOPHILS % 0.4 % (0.0-1.0); EOSINOPHILS # (AUTO) 0.2 (0.0-0.4); EOSINOPHILS % 2.2 % (0.0-6.0); HEMATOCRIT 36.7 % (34.2-44.1); HEMOGLOBIN 12.4 g/dL (12.0-16.0); LYMPHOCYTES # (AUTO) 1.8 (1.0-3.2); LYMPHOCYTES % 24.6 % (18.0-39.1); MEAN CORPUSCULAR HEMOGLOBIN 30.8 pg (28-32); MEAN CORPUSCULAR HGB CONC 33.8 g/dL (31-35); MEAN CORPUSCULAR VOLUME 91.1 fL (81-99); MONOCYTES # (AUTO) 0.9 (0.2-0.8); NEUTROPHILS # (AUTO) 4.4 (2.1-6.9); NEUTROPHILS % 60.4 % (38.7-80.0); PLATELET COUNT 192 x10e3/uL (140-360); RED BLOOD COUNT 4.03 x10e6/uL (3.6-5.1); RED CELL DISTRIBUTION WIDTH 12.9 % (11.7-14.4)
[2017-09-19 07:48] LABS: ALANINE AMINOTRANSFERASE 26 IU/L (0-55); ALBUMIN 2.8 g/dL (3.5-5.0); ALBUMIN/GLOBULIN RATIO 0.9 (0.8-2.0); ALKALINE PHOSPHATASE 105 IU/L (40-150); ANION GAP 12.4 mmol/L (8-16); BLOOD UREA NITROGEN 11 mg/dL (7-26); BUN/CREATININE RATIO 14 (6-25); CALCIUM 9.1 mg/dL (8.4-10.2); CARBON DIOXIDE 26 mmol/L (22-29); CHLORIDE 103 mmol/L (98-107); CREATININE, SERUM 0.79 mg/dL (0.57-1.11); EST GLOMERULAR FILTRATION RATE > 60 ML/MIN (60-); GLUCOSE 151 mg/dL (74-118); POTASSIUM 3.4 mmol/L (3.5-5.1); SODIUM 138 mmol/L (136-145)
[2017-09-19 08:32] LABS: CREATINE KINASE MB 1.2 ng/mL (0-5.0)
[2017-09-19] MEDS: MORPHINE SULFATE 30 MG TAB ER PO SCH ×2 (08:52→16:32)
[2017-09-19] MEDS: GABAPENTIN 100 MG CAP PO SCH ×3 (08:52→20:27)
[2017-09-19] MEDS: FAMOTIDINE 20 MG TAB PO SCH ×2 (08:52→16:32)
[2017-09-19] MEDS: LISINOPRIL 20 MG TAB PO SCH (08:52)
[2017-09-19] MEDS: FLUOXETINE HCL 20 MG CAP PO SCH (08:53)
[2017-09-19] MEDS: HYDROCODONE/APAP 10MG-325MG TAB PO PRN (11:32)
[2017-09-19] MEDS: ALPRAZOLAM 0.5 MG TAB PO PRN ×2 (11:32→20:28)
[2017-09-19] MEDS ORDERED: ACETAMINOPHEN 325 MG TAB PO PRN ×2 (13:15)
[2017-09-19 15:50] LABS: CREATINE KINASE MB 1.2 ng/mL (0-5.0)
[2017-09-19] MEDS ORDERED: ZOLPIDEM TARTRATE 10 MG TAB PO SCH (21:00)
[2017-09-20] VITALS: BP 109/61
[2017-09-20 04:53] VITALS: BP 10/69
[2017-09-20] MEDS: MEROPENEM 1 GM VIAL IV SCH (06:28)
[2017-09-20 06:40] LABS: BASOPHILS % 0.3 % (0.0-1.0); EOSINOPHILS # (AUTO) 0.1 (0.0-0.4); EOSINOPHILS % 2.4 % (0.0-6.0); HEMATOCRIT 35.2 % (34.2-44.1); HEMOGLOBIN 11.6 g/dL (12.0-16.0); LYMPHOCYTES # (AUTO) 2.1 (1.0-3.2); LYMPHOCYTES % 35.9 % (18.0-39.1); MEAN CORPUSCULAR HEMOGLOBIN 30.9 pg (28-32); MEAN CORPUSCULAR VOLUME 93.6 fL (81-99); MONOCYTES # (AUTO) 0.6 (0.2-0.8); MONOCYTES % 10.7 % (4.4-11.3); NEUTROPHILS % 50.4 % (38.7-80.0); PLATELET COUNT 189 x10e3/uL (140-360); RED BLOOD COUNT 3.76 x10e6/uL (3.6-5.1); RED CELL DISTRIBUTION WIDTH 13.1 % (11.7-14.4)
[2017-09-20 07:15] LABS: ANION GAP 9.8 mmol/L (8-16); BLOOD UREA NITROGEN 12 mg/dL (7-26); BUN/CREATININE RATIO 15 (6-25); CALCIUM 9.1 mg/dL (8.4-10.2); CARBON DIOXIDE 28 mmol/L (22-29); CHLORIDE 105 mmol/L (98-107); EST GLOMERULAR FILTRATION RATE > 60 ML/MIN (60-); GLUCOSE 104 mg/dL (74-118); MAGNESIUM 1.8 MG/DL (1.3-2.1); POTASSIUM 3.8 mmol/L (3.5-5.1); SODIUM 139 mmol/L (136-145)
[2017-09-20 08:23] VITALS: BP 129/81
[2017-09-20] MEDS: MORPHINE SULFATE 30 MG TAB ER PO SCH (08:36)
[2017-09-20] MEDS: FAMOTIDINE 20 MG TAB PO SCH (08:36)
[2017-09-20] MEDS: GABAPENTIN 100 MG CAP PO SCH (08:36)
[2017-09-20] MEDS: FLUOXETINE HCL 20 MG CAP PO SCH (08:37)
[2017-09-20] MEDS: LISINOPRIL 20 MG TAB PO SCH (08:37)
[2017-09-20] MEDS: ALPRAZOLAM 0.5 MG TAB PO PRN (09:09)
[2017-09-20] MEDS: HYDROCODONE/APAP 10MG-325MG TAB PO PRN (09:44)
[2017-09-20 09:54] VITALS: BP 126/81
[2017-09-20 11:59] VITALS: BP 142/90
[2017-09-20] MEDS ORDERED: CIPRO500 MG PO (12:53)
[2017-09-20] MEDS ORDERED: ASCORBIC ACID500 MG PO (12:53)
[2017-09-20] MEDS ORDERED: LISINOPRIL20 MG PO (12:53)
--- NOTE | 2017-09-20 18:42 | Discharge Summary ---
ADMISSION DIAGNOSES 1. Fall. 2. Left hip pain. 3. Hypertension. 4. Chronic pain. 5. Urinary tract infection. 6. Hypokalemia. 7. Depression/anxiety. DISCHARGE DIAGNOSES 1. Fall. 2. Left hip pain. 3. Hypertension. 4. Chronic pain. 5. Urinary tract infection. 6. Hypokalemia. 7. Depression/anxiety. 8. Extended-spectrum beta-lactamase of the urine. HISTORY: Patient has a history of hypertension, CVA, left breast cancer with remission, lupus, fibromyalgia, chronic pain, anxiety, rheumatoid arthritis, depression, surgical history of hysterectomy, left mastectomy with reconstruction, and cholecystectomy. HOSPITAL COURSE: A 67-year-old female presented with left hip pain status post fall about 4 days ago. She said her right knee gave out and she fell to her left hip. She came to the ER when the pain did not improve. She denies dizziness. On admission the patient had a CT of the head which was negative, echo which showed 55% to 60%, physical therapy as well as case management for home therapy and a walker. X-ray of the hip showed no acute abnormality. Chest x-ray showed no acute abnormality. CT of the C-spine showed no acute cervical spine abnormalities, and head CT was negative as well. Urine culture showed ESBL. Patient was started on Merrem and Rocephin. She did not want to go to a [facility] facility. She says she will only go home. So, she was discharged home on Cipro b.i.d. for 14 days. She will resume all other home medications. Follow up with home health for physical therapy and follow up with PCP in about 2 weeks. Patient says she feels better and feels like her left hip is getting better every day, just sore. She is excited to go home. Dictated by: Katlyn Marie NP TORRI MCCARTHY MD Job#: [id number] EV
== END 2017-09-20 15:32 | disposition home health service (06) | DRG 556 ==
LOC: ER 13:30 → IMCU 20:00 → OBSVTOIN 09-19 12:14
PROVIDERS: ADMIT Internal Medicine; ATTEND Internal Medicine
DX: M25.552 Pain in left hip (principal); N39.0 Urinary tract infection, site not specified; W01.0XXA Fall on same level from slipping, tripping and stumbling without subsequent striking against object, initial encounter; Y92.009 Unspecified place in unspecified non-institutional (private) residence as the place of occurrence of the external cause; B96.20 Unspecified Escherichia coli [E. coli] as the cause of diseases classified elsewhere; Z16.12 Extended spectrum beta lactamase (ESBL) resistance; I10 Essential (primary) hypertension; G89.29 Other chronic pain; E87.6 Hypokalemia; F41.8 Other specified anxiety disorders; K21.9 Gastro-esophageal reflux disease without esophagitis; M32.9 Systemic lupus erythematosus, unspecified; M79.7 Fibromyalgia; M06.9 Rheumatoid arthritis, unspecified; Z28.21 Immunization not carried out because of patient refusal
CPT/HCPCS: 36415; 70450; 71045; 72125; 73521; 80048; 80053; 81001; 82550; 82553; 82948; 83735; 84443; 84484; 85025; 85610; 85730; 87086; 87186; 93005; 93306; 93880; 99284; G0378; J0360; J0696; J2185; J2270

== ENCOUNTER → 2022-07-16 | Outpatient (CLI) | payer MEDICARE ==
[~2022-07-16] MED LIST changes: +ASCORBIC ACID500 MG PO
== END ==
LOC: MAMMO 13:06
PROVIDERS: ATTEND Family Medicine
DX: Z12.31 Encounter for screening mammogram for malignant neoplasm of breast (principal); M81.8 Other osteoporosis without current pathological fracture
CPT/HCPCS: 77080

== ENCOUNTER → 2024-01-04 | Outpatient (REF) | payer MEDICARE ==
[~2024-01-04] MED LIST changes: +DIATRIZOATE MEGL/DIATRIZOA SOD 30 ML BTL PO ONE; +IOPAMIDOL 370 MG/ML 100 ML INFUS..BTL INJ ONE
[2024-01-04 14:29] LABS: CREATININE, SERUM 0.95 mg/dL (0.57-1.11)
== END ==
LOC: CT 13:24
PROVIDERS: ATTEND Surgery
DX: R10.32 Left lower quadrant pain (principal)
CPT/HCPCS: 36415; 72193; 82565; 84520; Q9963; Q9967